=== PATIENT | male | born 1935 | race Caucasian/White ===

== ENCOUNTER 2021-07-15 16:02 | Emergency (ER) | payer MEDICARE, SELFPAY ==
[2021-07-15] VITALS (7 sets, daily range): BP systolic 135–141; BP diastolic 51–71; PULSE 71–88; RESP 17–20; TEMP 36.3–36.8; O2SAT 97–100
--- NOTE | ~2021-07-15 | XR_ITS ---
EXAMINATION: XR chest 1V portable 07/15/2021 16:55 INDICATION: Weakness. Dyspnea. PROCEDURE: AP portable chest COMPARISON: No prior studies for comparison. FINDINGS: The lungs are clear. The cardiomediastinal silhouette is within normal limits. There are no pleural effusions. There is no pneumothorax suspected. Status post median sternotomy for CABG. IMPRESSION: 1: NO ACUTE CARDIOPULMONARY DISEASE. Reviewed, dictated and finalized at location A.
--- NOTE | 2021-07-15 17:01 | PC.NURSE ---
Patient's son in room. He tells me that patient's current mental status is his baseline but that over the last 3-4 days he has been having periods of increased confusion. Patient states he has not been able to tell where he was, sometimes saying he was in [place], another time stating he was in his garage, etc...
[2021-07-15 17:16] LABS: Basophils Percent Auto 0.3 % (0.2-1.2); Eosinophils Absolute Auto 0.2 K/mm3 (0-0.3); Eosinophils Percent Auto 3.1 % (0-4.4); Hematocrit 32.9 % (42.0-52.0); Hemoglobin 10.4 g/dL (14.0-18.0); Immature Granulocyte Absolute 0.01 K/mm3 (0.00-0.031); Immature Granulocyte Percent A 0.2 % (0-0.5); Lymphocytes Absolute Auto 0.97 K/mm3 (0.9-3.2); Lymphocytes Percent Auto 16.6 % (18.3-44.2); Mean Corpuscular HGB Conc 31.6 g/dl (32-36); Mean Corpuscular Hemoglobin 32.1 pg (26-34); Mean Corpuscular Volume 101.5 fl (80-100); Mean Platelet Volume 12.4 fl (7.4-10.4); Monocytes Absolute Auto 0.7 K/mm3 (0.1-0.6); Monocytes Percent Auto 11.5 % (2.6-8.5); Neutrophils Percent Auto 68.3 % (45.5-73.1); Platelet Count Result 102 k/mm3 (150-375); Red Blood Count 3.24 M/mm3 (4.6-6.20); Red Cell Distribution Width 12.5 % (11.5-14.5); White Blood Count 5.8 K/mm3 (4.5-10.0)
[2021-07-15] MEDS: LACTATED RINGERS 1,000 ML 999 ML IV CONT (17:20)
[2021-07-15 17:28] LABS: Alanine Aminotransferase 13 U/L (4-50); Albumin Level 3.8 g/dL (3.5-5.1); Alkaline Phosphatase 90 U/L (38-126); Anion Gap 8 mmol/L (8-16); Aspartate Amino Transferase 18 U/L (17-59); Bilirubin,Total 0.5 mg/dL (0.2-1.3); Blood Urea Nitrogen 29 mg/dL (9-20); Calcium 8.8 mg/dL (8.4-10.2); Carbon Dioxide 25 mmol/L (22-30); Chloride 107 mmol/L (98-107); Estimated CRCL calculation 39 ml/min; Estimated Glomerular Filt Rate 44; Glucose 113 mg/dL (65-110); Potassium 4.3 mmol/L (3.4-5.0); Sodium 140 mmol/L (137-145)
--- NOTE | 2021-07-15 17:42 | PC.NURSE ---
urine to lab at this time. EDP notified of amount of urine from catheterization.
[2021-07-15 17:50] LABS: Add Urine Microscopic? NO; Appearance Urine Clear (Clear); Bilirubin Urine Negative (Negative); Blood Urine Negative (Negative); Color Urine Straw (Yellow); Glucose Urine UA Negative (Negative); Ketones Urine Negative (Negative); Leukocyte Esterase Ur Negative LEU/UL (Negative); Nitrate Urine Negative (Negative); Protein Urine Negative (Negative); Specific Grav Ur 1.005 (1.001-1.035); Urobilinogen Urine Negative mg/dL (<2.0)
--- NOTE | 2021-07-15 19:43 | PC.NURSE ---
EDP ordered murillo placement due to excessive urine noted with straight catheterization.
--- NOTE | 2021-07-15 20:11 | ED.GENADULT ---
HPI - General Adult General Chief complaint: Unspecified Stated complaint: Constipation Time Seen by Provider: 07/15/21 16:06 Source: patient and family Mode of arrival: ambulatory Limitations: altered mental status History of Present Illness HPI narrative: 85-year-old man Brought in from nursing facility for constipation and confusion Patient had apparently been constipated for several days but shortly before departing for the ED this problem was reported to resolve itself at the nursing facility and is no longer bothersome His son, who brought him in, is concerned that his mental status has been fluctuating and worsening Patient is described as less active than usual more confused than usual thinking he was in [facility] at some point for instance He has had similar issues with UTIs in the past and does say that he has been voiding often Patient otherwise contributes hardly anything to his history but does not appear to be in any distress Related Data Home Medications Medication Instructions Recorded Confirmed aspirin 81 mg tablet,delayed 81 mg PO DAILY 06/29/21 release brimonidine 0.2 % eye drops 1 drp EACH EYE Q8H 06/29/21 carvedilol 3.125 mg tablet 3.125 mg PO Q12H 06/29/21 desvenlafaxine 100 mg 100 mg PO DAILY 06/29/21 tablet,extended release 24 hr dorzolamide 22.3 mg-timolol 6.8 1 drp EACH EYE BID 06/29/21 mg/mL eye drops finasteride 5 mg tablet 5 mg PO DAILY 06/29/21 fluticasone propionate 50 1 spray INTRANASAL DAILY 06/29/21 mcg/actuation nasal spray,suspension folic acid 1 mg tablet 1 mg PO DAILY 06/29/21 furosemide 20 mg tablet 20 mg PO QAM 06/29/21 lisinopril 5 mg tablet 5 mg PO DAILY 06/29/21 simvastatin 40 mg tablet 40 mg PO DAILY 06/29/21 tamsulosin 0.4 mg capsule 0.4 mg PO DAILY 06/29/21 Allergies Allergy/AdvReac Type Severity Reaction Status Date / Time watermelon Allergy Severe SOB Verified 07/15/21 16:56 Review of Systems Review of Systems: ROS unobtainable: Yes unobtainable due to mental status PMFSH Social History Social History (Updated 06/29/21 @ 14:31 by Lena Medrano) Social History: Smoking status: Former smoker Tobacco type: cigarettes Second hand tobacco smoke exposure: Yes Alcohol intake: never Substance use: never Substance use type: does not use Gender identity (if verbalized by the patient): Male Sexual Orientation (if Verbalized by the Patient): Straight or Heterosexual Exam Const: General: no acute distress and well developed Orientation/consciousness: oriented to person Other: Frail, elderly, oriented x1-2 HENMT: Head: normal to inspection, normocephalic and atraumatic Ears: external ears normal General nose exam: no epistaxis Eyes: Conjunctivae: conjunctivae normal EOM: EOMs intact bilaterally Neck: Neck: normal visual inspection, supple and no JVD Chest: Chest palpation & inspection: normal inspection of the chest Resp: Effort & Inspection: normal respiratory effort and not labored Auscultation: clear to auscultation bilaterally, no rales, no rhonchi, no wheezes and other (BS =) Cardio: Rate: regular rate Rhythm: regular rhythm and other (Occasional extrasystole) Heart sounds: no murmurs GI: GI Palp: Yes Soft to palpation, No Tenderness to palpation present (GI) and No Guarding due to palpation present (GI) Urinary Catheter: Urinary Catheter: other (Gomez was placed with 1300 cc out) Skin: General skin exam: normal color and no rashes or lesions noted Neuro: General: moves all extremities Extrem: General: other (Trace edema) Course Course Emergency Course: Discussed with son, unremarkable work-up, Gomez will need to stay in for it at least 2 or 3 days and may be a week or longer, will need to be followed up by urology as well as by primary care Vital Signs Vital signs: Vital Signs Temperature 36.4 C 07/15/21 16:02 Pulse Rate 71 07/15/21 16:02 Respiratory Rate 18 07/05
== END 2021-07-15 21:35 ==
PROVIDERS: Emergency Provider Emergency Medicine; PCP Family Medicine
DX: R41.82 Altered mental status, unspecified (principal); R33.9 Retention of urine, unspecified; Z79.82 Long term (current) use of aspirin; Z87.891 Personal history of nicotine dependence
CPT/HCPCS: 36415; 51701; 51702; 71045; 80053; 81003; 84443; 85025; 96360; 99284; J7120

== ENCOUNTER 2021-07-29 19:48 | Inpatient (IN) | payer MEDICARE, SELFPAY ==
--- NOTE | ~2021-07-29 | CT_ITS ---
EXAMINATION: CT brain wo con DATE: 07/29/2021 20:52 INDICATION: Confusion TECHNIQUE: Computed tomography (CT) of the head was performed without intravenous contrast. Sagittal and coronal reconstructions were performed. The mA was adjusted according to patient size. Iterative reconstruction technique was employed. The dose-length product was 681.00 mGy-cm. COMPARISON: None FINDINGS: No acute intracranial hemorrhage, acute infarction or abnormal extra axial fluid collection. There is mild to moderate scattered white matter hypoattenuation consistent with chronic small vessel ischemi c disease. Symmetric prominence of the sulci and ventricles consistent with moderate age-appropriate diffuse cerebral volume loss. No mass/mass effect. Changes of bilateral intraocular lens replacement . The orbits, paranasal sinuses and mastoid air cells are normal. Intracranial calcified cerebral ath erosclerosis is noted. IMPRESSION: 1. No acute intracranial process. 2. Age-related changes including moderate diffuse volume loss and moderate scattered white matter hyp oattenuation consistent with chronic small vessel ischemic disease. Reviewed, dictated and finalized at location A. IMPRESSION: 1. No acute intracranial process. 2. Age-related changes including moderate diffuse volume loss and moderate scat tered white matter hypoattenuation consistent with chronic small vessel ischemi c disease.
--- NOTE | ~2021-07-29 | CT_ITS ---
EXAMINATION: CT abdomen pelvis wo con EXAM DATE: 07/29/2021 22:42 INDICATION: Hematuria. TECHNIQUE: Spiral CT of the abdomen and pelvis was performed without contrast. Axial, coronal and sag ittal images were reviewed. The dose-length product (DLP) for this examination was 1447.87 mGy-cm. The exposure was tailored according to patient size (auto mA exposure control), and iterative reconst ruction (ASIR) was used as additional dose reduction technique. There is no prior study for comparis on. FINDINGS: There is no nephrolithiasis or hydronephrosis. There is mild bilateral renal atrophy. The p rostate is unremarkable. Small left inguinal fat-containing hernia. The bladder is distended with a few foci of gas likely introduced by Gomez. There is Gomez catheter with balloon anchor inflated in t he membranous portion of the urethra, should be deflated and catheter advanced or reinserted. The liver, spleen, adrenal glands and pancreas are unremarkable. There is punctate calcified gallsto ne. There is no retroperitoneal or pelvic lymphadenopathy. There is moderate scattered arterioscle rotic disease. Mildly dilated mid abdominal aorta to 3.1 cm. The appendix is normal. The stomach and small bowel are unremarkable. There is expected amount of c olonic stool. No free intraperitoneal gas. The heart is normal in size. The interventricular sept um is perceptible, suggesting patient is anemic. There are no pericardial or pleural effusions. Th e lung bases are unremarkable. There are no osteoblastic or osteolytic lesions identified. Moderate -sized thoracolumbar endplate osteophytes and overall moderate spondylosis. IMPRESSION: 1. Distended bladder. Gomez catheter balloon inflated in the membranous portion of the urethra. 2. Small left inguinal fat-containing hernia. 3. Punctate cholelithiasis. I discussed Gomez catheter position with hospitalist Ezra at 07/30/2021 08:17 CDT. Reviewed, dictated and finalized at location A. IMPRESSION: 1. Distended bladder. Gomez catheter balloon inflated in the membranous portio n of the urethra. 2. Small left inguinal fat-containing hernia. 3. Punctate cholelithiasis. I discussed Gomez catheter position with hospitalist Ezra at 07/30/2021 08:17 CDT .
--- NOTE | ~2021-07-29 | XR_ITS ---
EXAMINATION: XR chest 1V portable EXAM DATE: 07/30/2021 00:10 INDICATION: Cough. TECHNIQUE: Portable AP frontal chest x-ray was obtained. Comparison is made to prior examination from 07/15/2021. FINDINGS: Sternotomy wires are present without findings to suggest sternal dehiscence. Mild cardiomeg rudy and pulmonary vascular congestion. Left basilar linear opacity most consistent with subsegmental atelectasis. The lungs are otherwise clear. There are bony degenerative changes. IMPRESSION: 1. Mild cardiomegaly, pulmonary vascular congestion. 2. Left basilar linear atelectasis. Reviewed, dictated and finalized at location A.
[2021-07-29 20:00] VITALS: BP 124/54; PULSE 102; RESP 32; TEMP 37.5; O2SAT 96
--- NOTE | 2021-07-29 20:14 | ECG_ITS ---
Measurements Intervals [place] Rate: 96 P: -16 [place]: 92 QRS: 49 QRSD: 97 T: 70 QT: 336 QTc: 425 Interpretive Statements SINUS OR ECTOPIC ATRIAL RHYTHM WITH SHORT [place] INTERVAL BASELINE ARTIFACT- I, III, AVL BORDERLINE ECG Electronically Signed On 07-30-2021 7:57:05 CDT by Aníbal Floyd D.O.
--- NOTE | 2021-07-29 20:26 | ED.AMS ---
HPI - Altered Mental Status General Chief Complaint: Altered Mental Status Stated Complaint: AMS Time Seen by Provider: 07/29/21 20:02 Source: patient Mode of arrival: ambulatory Limitations: no limitations History of Present Illness HPI narrative: Patient is an 85-year-old male brought in by EMS from assisted living facility due to confusion and generalized weakness started today. According to daughter when she visited him, he was confused, he did not know where he was and when I tried to stand him up he was too weak usually patient is alert and oriented x4, and walks with a walker. Denies any focal weakness. Patient has a Gomez cath due to urinary retention that was placed 1 month ago by his urologist. Related Data Home Medications Medication Instructions Recorded Confirmed aspirin 81 mg tablet,delayed 81 mg PO DAILY 06/29/21 release brimonidine 0.2 % eye drops 1 drp EACH EYE Q8H 06/29/21 carvedilol 3.125 mg tablet 3.125 mg PO Q12H 06/29/21 desvenlafaxine 100 mg 100 mg PO DAILY 06/29/21 tablet,extended release 24 hr dorzolamide 22.3 mg-timolol 6.8 1 drp EACH EYE BID 06/29/21 mg/mL eye drops finasteride 5 mg tablet 5 mg PO DAILY 06/29/21 fluticasone propionate 50 1 spray INTRANASAL DAILY 06/29/21 mcg/actuation nasal spray,suspension folic acid 1 mg tablet 1 mg PO DAILY 06/29/21 furosemide 20 mg tablet 20 mg PO QAM 06/29/21 lisinopril 5 mg tablet 5 mg PO DAILY 06/29/21 simvastatin 40 mg tablet 40 mg PO DAILY 06/29/21 tamsulosin 0.4 mg capsule 0.4 mg PO DAILY 06/29/21 Allergies Allergy/AdvReac Type Severity Reaction Status Date / Time watermelon Allergy Severe SOB Verified 07/15/21 16:56 Review of Systems Review of Systems: All systems reviewed & are unremarkable except as noted in HPI and below Eyes: Eyes: Denies blurry vision, Denies change in vision and Denies loss of vision ENT: Denies dizziness, Denies ear discharge, Denies headache(s), Denies lip swelling, Denies epistaxis, Denies nasal congestion, Denies neck pain, Denies throat swelling and Denies tongue swelling Cardiovascular: Cardiovascular: Denies chest pain, Denies chest pain at rest, Denies chest pain with activity, Denies diaphoresis, Denies rapid heart rate, Denies edema, Denies irregular heart rhythm, Denies lightheadedness, Denies palpitations, Denies dyspnea and Denies dyspnea on exertion Respiratory: Respiratory: Denies chest congestion, Denies cough, Denies hemoptysis, Denies dyspnea and Denies dyspnea on exertion Gastrointestinal: Gastrointestinal: Denies abdominal pain, Denies melena, Denies hematochezia, Denies diarrhea, Denies nausea, Denies vomiting and Denies hematemesis Musculoskeletal: Musculoskeletal: Denies abnormal gait, Denies deformity, Denies joint swelling, Denies limited range of motion, Denies neck pain and Denies numbness Neurologic: Denies Abnormal speech present, Denies confusion, Denies dizziness, Denies headache(s), Denies focal weakness, Denies loss of vision, Denies numbness, Denies Other visual disturbances and Denies Sensory deficit (Neuro) Psychiatric: Psychiatric: Denies confusion, Denies depression, Denies auditory hallucinations, Denies homicidal ideation and Denies suicidal ideation Endocrine: Endocrine: Denies cold intolerance, Denies excessive sweating, Denies fatigue, Denies heat intolerance and Denies palpitations Hematologic/Lymphatic: Hematologic/Lymphatic: Denies easy bleeding and Denies easy bruising Allergic/Immunologic: Allergic/Immunologic: Denies lip swelling, Denies throat swelling and Denies tongue swelling PMFSH Social History Social History Social History: Smoking status: Former smoker Tobacco type: cigarettes Second hand tobacco smoke exposure: Yes Alcohol intake: never Substance use: never Substance use type: does not use Gender identity (if verbalized by the patient): Male Sexual Orientation (if
[2021-07-29 21:00] LABS: Hematocrit 28.8 % (42.0-52.0); Hemoglobin 9.3 g/dL (14.0-18.0); Immature Platelet Fraction Pct 6.8 % (0.9-11.2); Mean Corpuscular HGB Conc 32.3 g/dl (32-36); Mean Corpuscular Hemoglobin 33.3 pg (26-34); Mean Corpuscular Volume 103.2 fl (80-100); Mean Platelet Volume 11.9 fl (7.4-10.4); Platelet Count Result 133 k/mm3 (150-375); Red Blood Count 2.79 M/mm3 (4.6-6.20); Red Cell Distribution Width 12.5 % (11.5-14.5); White Blood Count 9.4 K/mm3 (4.5-10.0)
[2021-07-29 21:07] LABS: Lactic Acid Reflex 1.9 mmol/L (0.7-2.1); Prothrombin Time 13.4 Seconds (11.1-14.7)
[2021-07-29 21:08] VITALS: BP 106/58; PULSE 94; RESP 26; O2SAT 99
[2021-07-29 21:08] LABS: Add Urine Microscopic? YES; Appearance Urine Cloudy (Clear); Bacteria Urine Trace /hpf; Bilirubin Urine Negative (Negative); Blood Urine 3+ (Negative); Color Urine Red (Yellow); Glucose Urine UA Negative (Negative); Ketones Urine Negative (Negative); Leukocyte Esterase Ur Negative LEU/UL (Negative); Mucus Urine Rare /lpf; Nitrate Urine Negative (Negative); Partial Thromboplastin Time 24.6 SECONDS (22.3-36.8); Protein Urine 2+ mg/dL (Negative); RBC Urine >75 /hpf (0-2); Specific Grav Ur 1.015 (1.001-1.035); Squamous Epithelial Cell Urine Occasional /hpf (Few); Urobilinogen Urine Negative mg/dL (<2.0)
[2021-07-29] MEDS: LACTATED RINGERS 1,000 ML 999 ML IV CONT (21:08)
[2021-07-29 21:11] LABS: Alanine Aminotransferase 35 U/L (4-50); Albumin Level 3.5 g/dL (3.5-5.1); Alkaline Phosphatase 77 U/L (38-126); Anion Gap 7 mmol/L (8-16); Aspartate Amino Transferase 36 U/L (17-59); Bilirubin,Total 0.5 mg/dL (0.2-1.3); Blood Urea Nitrogen 35 mg/dL (9-20); CRP 2.8 mg/dL (<1.0); Calcium 8.5 mg/dL (8.4-10.2); Carbon Dioxide 23 mmol/L (22-30); Chloride 109 mmol/L (98-107); Estimated CRCL calculation 42 ml/min; Estimated Glomerular Filt Rate 48; Glucose 156 mg/dL (65-110); Potassium 4.3 mmol/L (3.4-5.0); Sodium 139 mmol/L (137-145)
[2021-07-29 21:24] LABS: Anisocytosis 1+ (NORMAL); Band Neutrophils Percent 9 % (0-6); Monocytes Absolute Manual 0.09 K/mm3 (0.1-0.90); Monocytes Percent Manual 1 % (3-9); Neutrophils Percent Manual 90 % (46-73); Total Cells Counted 100
[2021-07-29 22:08] VITALS: BP 104/73; PULSE 96; RESP 28; O2SAT 98
[2021-07-29 23:24] VITALS: BP 94/40; PULSE 93; RESP 24; O2SAT 96
[2021-07-30] VITALS (8 sets, daily range): BP systolic 105–123; BP diastolic 50–65; PULSE 75–93; RESP 16–22; TEMP 36.4–37; O2SAT 100; BMI 32.8; BMI 10.0
[2021-07-30] MEDS: LIDOCAINE HCL 2% GEL UROJET 10 ML PKG (00:45)
--- NOTE | 2021-07-30 00:48 | PM.IMHP ---
H&P: HPI History of Present Illness Date/Time: 07/29/21 11:30 Patient seen and examined on 07/29/2021 at 11:38 p.m. later documentation Chief Complaint: Confusion Narrative: Patient is an 85-year-old male brought in by EMS from assisted living facility due to confusion and generalized weakness that started today. [id number] at bedside from was the history was taken. Patient himself open his eyes on verbal commands and answers few questions but not able to provide me with any history per se. The [id number] states that the patient was independently living back and [place] and recently moved to [facility] few months ago. He was stabbed list with the primary care doctor here and had seen her last month. He has been having urinary dribbling and frequency for quite some time and presented to the ER on 07/15/2021 with acute urinary retention for which are urinary catheter was placed in the ER and was sent home. He apparently has been bleeding in his urine catheter since then and have been progressively getting is confused on and off. He is brought in again today by his [id number] when he was noted to be weak and more confused while she visited him. He has not been eating and drinking well as well. Denies any fever or chills. He does have a hacking cough which she reports he always had that. He is COVID vaccinated. He is normally alert and oriented x4 and walks with a walker. He has no focal weakness noted in our evaluation today. CT head was negative done in the ER. He had normal WBC count renal function was stable he does have chronic kidney disease stage 3 urinalysis was positive for greater than 35 rbc's 7-9 WBC. It was checked it that he had altered mental status due to urinary tract infection and is getting admitted for further evaluation and management. He is do not resuscitate Review of Systems Review of Systems: ROS unobtainable: Yes unobtainable due to medical condition and unobtainable due to mental status [facility] Social History Social History Social History: Smoking status: Former smoker Tobacco type: cigarettes Second hand tobacco smoke exposure: Yes Alcohol intake: never Substance use: never Substance use type: does not use Gender identity (if verbalized by the patient): Male Sexual Orientation (if Verbalized by the Patient): Straight or Heterosexual Meds Home Medications and Allergies Home Medications Medication Instructions Recorded Confirmed Type aripiprazole 5 mg tablet 2.5 mg PO DAILY #90 tablet 06/29/21 06/29/21 Rx aspirin 81 mg tablet,delayed 81 mg PO DAILY 06/29/21 History release brimonidine 0.2 % eye drops 1 drp EACH EYE Q8H 06/29/21 History carvedilol 3.125 mg tablet 3.125 mg PO Q12H 06/29/21 History desvenlafaxine 100 mg 100 mg PO DAILY 06/29/21 History tablet,extended release 24 hr dorzolamide 22.3 mg-timolol 6.8 1 drp EACH EYE BID 06/29/21 History mg/mL eye drops finasteride 5 mg tablet 5 mg PO DAILY 06/29/21 History fluticasone propionate 50 1 spray INTRANASAL DAILY 06/29/21 History mcg/actuation nasal spray,suspension folic acid 1 mg tablet 1 mg PO DAILY 06/29/21 History furosemide 20 mg tablet 20 mg PO QAM 06/29/21 History lisinopril 5 mg tablet 5 mg PO DAILY 06/29/21 History mirtazapine 15 mg tablet 15 mg PO QHS #90 tablet 06/29/21 06/29/21 Rx simvastatin 40 mg tablet 40 mg PO DAILY 06/29/21 History tamsulosin 0.4 mg capsule 0.4 mg PO DAILY 06/29/21 History nitrofurantoin monohyd/m-cryst 100 mg PO Q12H 7 Days #14 cap 07/15/21 Rx [Macrobid] Allergies Allergy/AdvReac Type Severity Reaction Status Date / Time watermelon Allergy Severe SOB Verified 07/15/21 16:56 Vital Signs Vital Signs - 24 hr 07/29/21 20:00 07/29/21 21:08 07/29/21 22:08 Temperature 99.5 F Pulse Rate 102 H 94 96 Respiratory Rate 32 H 26 H 28 H Bloo
[2021-07-30 02:09] LABS: NT Pro B Type Natriuretic Pept 4130 pg/mL (5-100)
[2021-07-30] MEDS: LACTATED RINGERS 1,000 ML 50 ML IV CONT (02:30)
--- NOTE | 2021-07-30 06:13 | PC.NURSE ---
This patient, Ealdio Bello, was admitted to 3 [facility] Surg Room 317-01. Patient/family oriented to hospital policies and general routines including ID bracelet, bed and alarms, visiting hours, pain management, procedures, bathroom and other care routines, personal items, smoking policy, room service/diet, and visiting hours. Information on how to activate the Rapid Response Team has been discussed. Patient/Family are encouraged to report perceived risks to care and to ask questions if they do not understand what they are told or what they should do.
[2021-07-30] MEDS: guaiFENesin 12 HR 600 MG TABCR PO ×2 (10:00→21:56)
[2021-07-30] MEDS: LIDOCAINE HCL 2% GEL UROJET 10 ML PKG MUCOUS MEM (10:33)
--- NOTE | 2021-07-30 10:33 | WPDURCON ---
Assessment and Plan Assessment and plan (1) Urinary retention: Code(s): R33.9 - Retention of urine, unspecified Status: Acute Assessment and Plan: I removed the 3-way catheter and placed an 18 [place] catheter. This placed easily and flushed well. It is in correct position. (2) Chronic indwelling Gomez catheter: Code(s): Z97.8 - Presence of other specified devices Status: Acute Assessment and Plan: He will need to continue with the catheter. He should have follow up with his regular urologist for management. If he does not have a regular urologist, his facility should make him a follow up visit with [facility]. (3) Hematuria: Code(s): R31.9 - Hematuria, unspecified Status: Acute Assessment and Plan: The sequence of events appears to be that he presented with the catheter malpositioned from his facility. With replacement of the catheter initially in the ER, the hematuria has cleared. He does not need additional work up as the cause of the hematuria appears to be catheter trauma. Urology Consult Note HPI Date Seen: 07/30/21 Requesting Physician: Brent Armando MD Primary Care Provider: Barbara Batista MD Consult Narrative Narrative: Eladio Bello is a 85 year old male who was admitted for altered mental status and possible UTI. He has a chronic Gomez catheter for management of urinary retention. On CT scan from 07/29/21 at 22:24, the catheter was in the membranous urethra. On examination today, there is a 3-way Gomez catheter in place draining clear yellow urine with CBI off. In consultation with the nursing staff, the Gomez has been draining well and they were instructed to reposition the Gomez based on the CT scan findings. The Gomez drained well before and after the repositioning. Review of Systems Review of Systems: All systems reviewed & are unremarkable except as noted in HPI and below PMFSH Social History Social History Social History: Smoking status: Former smoker Second hand tobacco smoke exposure: Yes Alcohol intake: never Substance use: never Substance use type: does not use Gender identity (if verbalized by the patient): Male Sexual Orientation (if Verbalized by the Patient): Straight or Heterosexual Spiritual care concerns: No Meds Home Medications and Allergies Home Medications Medication Instructions Recorded Confirmed Type aripiprazole 5 mg tablet 2.5 mg PO DAILY #90 tablet 06/29/21 06/29/21 Rx aspirin 81 mg tablet,delayed 81 mg PO DAILY 06/29/21 History release brimonidine 0.2 % eye drops 1 drp EACH EYE Q8H 06/29/21 History carvedilol 3.125 mg tablet 3.125 mg PO Q12H 06/29/21 History desvenlafaxine 100 mg 100 mg PO DAILY 06/29/21 History tablet,extended release 24 hr dorzolamide 22.3 mg-timolol 6.8 1 drp EACH EYE BID 06/29/21 History mg/mL eye drops finasteride 5 mg tablet 5 mg PO DAILY 06/29/21 History fluticasone propionate 50 1 spray INTRANASAL DAILY 06/29/21 History mcg/actuation nasal spray,suspension folic acid 1 mg tablet 1 mg PO DAILY 06/29/21 History furosemide 20 mg tablet 20 mg PO QAM 06/29/21 History lisinopril 5 mg tablet 5 mg PO DAILY 06/29/21 History mirtazapine 15 mg tablet 15 mg PO QHS #90 tablet 06/29/21 06/29/21 Rx simvastatin 40 mg tablet 40 mg PO DAILY 06/29/21 History tamsulosin 0.4 mg capsule 0.4 mg PO DAILY 06/29/21 History nitrofurantoin monohyd/m-cryst 100 mg PO Q12H 7 Days #14 cap 07/15/21 Rx [Macrobid] Allergies Allergy/AdvReac Type Severity Reaction Status Date / Time watermelon Allergy Severe SOB Verified 07/30/21 01:50 Vital Signs Vital Signs - 24 hr 07/29/21 20:00 07/29/21 21:08 07/29/21 22:08 Temperature 37.5 C Pulse Rate 102 H 94 96 Respiratory Rate 32 H 26 H 28 H Blood Pressure 124/54 L 106/58 L 104/73 Pulse Oximetry 96 99 98 07/29/21 23:24 092
--- NOTE | 2021-07-30 10:48 | PCPTNOTE ---
attempted PT evaluation, pt refused, stated he was tired and neck hurt; unable to convince him, will attempt later.
--- NOTE | 2021-07-30 12:12 | P.PNIM_ITS ---
Progress Note: A&P Assessment and Plan (1) Acute metabolic encephalopathy: Code(s): G93.41 - Metabolic encephalopathy Status: Acute Assessment and Plan: * Multifactorial. Could be from infection or probable cause more from urinary retention and bladder distention along with severe constipation * Ongoing hematuria since Gomez catheter placement * Questionable UTI * ongoing cough, chest x-ray from last week was normal. * CT abdomen and pelvis ordered to further evaluate his hematuria and formal read is pending * ongoing urinary retention. Gomez catheter changed * Coude catheter inserted with ease * consult Urology, thinks is probably Gomez catheter trauma * empirically place on ceftriaxone for his urinary tract infection. * COVID vaccinated. * CT head is negative for any acute intracranial abnormality. * Consider MRI is does not improve. * pancultured follow culture (2) Urinary tract infection: Qualifiers: Hematuria presence: with hematuria Urinary tract infection type: acute cystitis Qualified Code(s): N30.01 - Acute cystitis with hematuria Code(s): N39.0 - Urinary tract infection, site not specified Status: Acute Assessment and Plan: * Could be from chronic Gomez catheter * White blood cell count 9.4 * Ceftriaxone 1 g q.day * Gomez catheter changed to a Coude * Trend labs * Trend urine output (3) Alzheimer's dementia with behavioral disturbance: Code(s): G30.9 - Alzheimer's disease, unspecified; F02.81 - Dementia in other diseases classified elsewhere with behavioral disturbance Status: Acute Assessment and Plan: * History of Alzheimer's * Continue home medications (4) BPH (benign prostatic hyperplasia): Code(s): N40.0 - Benign prostatic hyperplasia without lower urinary tract symptoms Status: Acute Assessment and Plan: * Continue home medications * Coude catheter to be left in * Chronic catheter (5) Hematuria: Code(s): R31.9 - Hematuria, unspecified Status: Acute Assessment and Plan: * UA showed red and cloudy urine with 3+ blood, rbc's greater than 75 * CBI draining red urine * Probably from Gomez catheter trauma * Patient did pull on his Gomez catheter (6) Chronic indwelling Gomez catheter: Code(s): Z97.8 - Presence of other specified devices Status: Acute Assessment and Plan: * New coude catheter * Patient has had a chronic Gomez for 2 weeks (7) Urinary retention: Code(s): R33.9 - Retention of urine, unspecified Status: Acute Assessment and Plan: * Seen in the CT * Probably from catheter being pulled on * Catheter balloon lodged in the urethra * Finasteride and tamsulosin ordered (8) Diabetes mellitus type 2, controlled: Code(s): E11.9 - Type 2 diabetes mellitus without complications Status: Acute Assessment and Plan: * Glucose 156 * Accu-Cheks a.c. HS * Continue home meds * Trend labs * Hypoglycemia protocol * Sliding scale insulin (9) Hypertension: Code(s): I10 - Essential (primary) hypertension Status: Acute Assessment and Plan: * Blood pressure 122/57 * Continue home meds * Trend blood pressure * Adjust medications as needed (10) Hyperlipidemia: Code(s): E78.5 - Hyperli
--- NOTE | 2021-07-30 12:12 | PM.IMPN ---
Progress Note: A&P Assessment and Plan (1) Acute metabolic encephalopathy: Code(s): G93.41 - Metabolic encephalopathy Status: Acute Assessment and Plan: Multifactorial. Could be from infection or probable cause more from urinary retention and bladder distention along with severe constipation Ongoing hematuria since Gomez catheter placement Questionable UTI ongoing cough, chest x-ray from last week was normal. CT abdomen and pelvis ordered to further evaluate his hematuria and formal read is pending ongoing urinary retention. Gomez catheter changed Coude catheter inserted with ease consult Urology, thinks is probably Gomez catheter trauma empirically place on ceftriaxone for his urinary tract infection. COVID vaccinated. CT head is negative for any acute intracranial abnormality. Consider MRI is does not improve. pancultured follow culture (2) Urinary tract infection: Qualifiers: Hematuria presence: with hematuria Urinary tract infection type: acute cystitis Qualified Code(s): N30.01 - Acute cystitis with hematuria Code(s): N39.0 - Urinary tract infection, site not specified Status: Acute Assessment and Plan: Could be from chronic Gomez catheter White blood cell count 9.4 Ceftriaxone 1 g q.day Gomez catheter changed to a Coude Trend labs Trend urine output (3) Alzheimer's dementia with behavioral disturbance: Code(s): G30.9 - Alzheimer's disease, unspecified; F02.81 - Dementia in other diseases classified elsewhere with behavioral disturbance Status: Acute Assessment and Plan: History of Alzheimer's Continue home medications (4) BPH (benign prostatic hyperplasia): Code(s): N40.0 - Benign prostatic hyperplasia without lower urinary tract symptoms Status: Acute Assessment and Plan: Continue home medications Coude catheter to be left in Chronic catheter (5) Hematuria: Code(s): R31.9 - Hematuria, unspecified Status: Acute Assessment and Plan: UA showed red and cloudy urine with 3+ blood, rbc's greater than 75 CBI draining red urine Probably from Gomez catheter trauma Patient did pull on his Gomez catheter (6) Chronic indwelling Gomez catheter: Code(s): Z97.8 - Presence of other specified devices Status: Acute Assessment and Plan: New coude catheter Patient has had a chronic Gomez for 2 weeks (7) Urinary retention: Code(s): R33.9 - Retention of urine, unspecified Status: Acute Assessment and Plan: Seen in the CT Probably from catheter being pulled on Catheter balloon lodged in the urethra Finasteride and tamsulosin ordered (8) Diabetes mellitus type 2, controlled: Code(s): E11.9 - Type 2 diabetes mellitus without complications Status: Acute Assessment and Plan: Glucose 156 Accu-Cheks a.c. 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
[2021-07-30] MEDS: BUMETANIDE INJ 1 MG/4 ML VIAL IV PUSH (13:52)
[2021-07-31 05:35] VITALS: BP 127/53; PULSE 77; RESP 20; TEMP 36.8; O2SAT 99
[2021-07-31 06:40] LABS: Basophils Percent Auto 0.2 % (0.2-1.2); Eosinophils Percent Auto 0.3 % (0-4.4); Hematocrit 29.3 % (42.0-52.0); Immature Granulocyte Absolute 0.02 K/mm3 (0.00-0.031); Immature Granulocyte Percent A 0.3 % (0-0.5); Immature Platelet Fraction Pct 7.4 % (0.9-11.2); Lymphocytes Percent Auto 3.1 % (18.3-44.2); Mean Corpuscular HGB Conc 30.7 g/dl (32-36); Mean Corpuscular Hemoglobin 32.4 pg (26-34); Mean Corpuscular Volume 105.4 fl (80-100); Mean Platelet Volume 11.8 fl (7.4-10.4); Monocytes Absolute Auto 0.5 K/mm3 (0.1-0.6); Monocytes Percent Auto 7.7 % (2.6-8.5); Neutrophils Absolute Auto 5.8 K/mm3 (1.3-6.7); Neutrophils Percent Auto 88.4 % (45.5-73.1); Platelet Count Result 101 k/mm3 (150-375); Red Blood Count 2.78 M/mm3 (4.6-6.20); Red Cell Distribution Width 12.3 % (11.5-14.5); White Blood Count 6.5 K/mm3 (4.5-10.0)
[2021-07-31 07:04] LABS: Alanine Aminotransferase 27 U/L (4-50); Albumin Level 3.2 g/dL (3.5-5.1); Alkaline Phosphatase 69 U/L (38-126); Anion Gap 8 mmol/L (8-16); Aspartate Amino Transferase 26 U/L (17-59); Bilirubin,Total 0.5 mg/dL (0.2-1.3); Blood Urea Nitrogen 32 mg/dL (9-20); Calcium 8.3 mg/dL (8.4-10.2); Carbon Dioxide 25 mmol/L (22-30); Chloride 106 mmol/L (98-107); Estimated CRCL calculation 49 ml/min; Estimated Glomerular Filt Rate 57; Glucose 104 mg/dL (65-110); Magnesium 1.9 mg/dL (1.6-2.3); Potassium 4.3 mmol/L (3.4-5.0); Sodium 139 mmol/L (137-145)
--- NOTE | 2021-07-31 07:51 | WPDUROPN2 ---
Progress Note: A&P Assessment and Plan (1) Hematuria: Qualifiers: Hematuria type: gross Qualified Code(s): R31.0 - Gross hematuria Code(s): R31.9 - Hematuria, unspecified Status: Resolved Assessment and Plan: Resolved (2) Chronic indwelling Gomez catheter: Code(s): Z97.8 - Presence of other specified devices Status: Acute Assessment and Plan: Continue Gomez. Outpatient urologic follow-up. Call with questions Subjective Subjective Date/Time Seen: 07/31/21 07:51 Urine clear. No complaints Review of Systems Review of Systems: All systems reviewed & are unremarkable except as noted in HPI and below Exam Const: General: cooperative HENMT: Head: normal to inspection Eyes: General: appearance normal, both eyes and all related structures Resp: Effort & Inspection: normal respiratory effort Urinary Catheter: Urinary Catheter: patent and draining and urine clear Objective Data Vital Signs Vital Signs: Vital Signs - 24 hr 07/30/21 08:00 07/30/21 14:00 07/30/21 20:00 Temperature 98.2 F Pulse Rate 76 75 Respiratory Rate 18 16 Blood Pressure 105/65 Pulse Oximetry 100 100 100 07/30/21 21:36 07/31/21 05:35 Temperature 97.6 F 98.3 F Pulse Rate 77 77 Respiratory Rate 20 20 Blood Pressure 123/50 L 127/53 L Pulse Oximetry 100 99 Intake/Output Intake/Output: Intake & Output 07/28/21 07/29/21 07/30/21 07/31/21 23:59 23:59 23:59 23:59 Intake Total 1050 970 240 Output Total 1000 450 Balance 1050 -30 -210 Meds/Results Medications: Active Medications Generic Name Dose Route Start Last Admin Trade Name Freq PRN Reason Stop Dose Admin Albuterol 2 puff 07/30/21 02:58 Albuterol Sulfate (*Sp) Aerosol 1 Puff INHALATION QIDRT PRN Congestion Guaifenesin 600 mg 07/30/21 09:00 07/30/21 21:56 Guaifenesin 12 Hr 600 Mg Tabcr PO 600 mg Q12HR RITA Administration Lactated Ringer's 1,000 mls @ 50 mls/hr 07/29/21 22:25 07/30/21 02:30 Lr - Lactated Ringers Iv IV CONT 50 mls/hr .Q20H RITA Administration Ceftriaxone Sodium/Dextrose 1 gm in 50 mls @ 100 mls/hr 07/30/21 21:00 07/30/21 22:26 Rocephin 1 Gm/D5w 50 Ml IVPB Infused Q24H RITA Infusion Radiology Results: ITS Impressions Head CT 07/29/21 21:16 IMPRESSION: 1. No acute intracranial process. 2. Age-related changes including moderate diffuse volume loss and moderate scattered white matter hypoattenuation consistent with chronic small vessel ischemic disease. Chest X-Ray 07/30/21 07:17 IMPRESSION: 1. Mild cardiomegaly, pulmonary vascular congestion. 2. Left basilar linear atelectasis. Abdomen/Pelvis CT 07/30/21 08:08 IMPRESSION: 1. Distended bladder. Gomez catheter balloon inflated in the membranous portion of the urethra. 2. Small left inguinal fat-containing hernia. 3. Punctate cholelithiasis. I discussed Gomez catheter position with hospitalist Ezra at 07/30/2021 08:17 CDT. Labs Labs: Laboratory Results - last 24 hr 07/31/21 07/31/21 06:04 06:04 WBC 6.5 RBC 2.78 L Hgb 9.0 L Hct 29.3 L MCV 105.4 H MCH 32.4 MCHC 30.7 L RDW 12.3 Plt Count 101 L MPV 11.8 H Immature Gran % (Auto) 0.3 Neut % (Auto) 88.4 H Lymph % (Auto) 3.1 L [place] % (Auto) 7.7 Eos % (Auto) 0.3 Baso % (Auto) 0.2 Lymph # (Auto) 0.20 L [place] # (Auto) 0.5 Eos # (Auto) 0.0 Baso # (Auto) 0.0 Abs Immat Gran (auto) 0.02 Absolute Neuts (auto) 5.8 Absolute Nucleated RBC 0.0 Nucleated RBC % 0.0 % Immature Plt Fraction 7.4 Sodium 139 Potassium 4.3 Chloride 106 Carbon Dioxide 25 Anion Gap 8 BUN 32 H Creatinine 1.20 Estim Creat Clear Calc 49 Estimated GFR 57 L Glucose 104 Calcium 8.3 L Magnesium 1.9 Total Bilirubin 0.5 AST 26 ALT 27 Alkaline Phosphatase 69 Total Protein 6.0 L Albumin 3.2 L
[2021-07-31] MEDS: guaiFENesin 12 HR 600 MG TABCR PO (08:24)
--- NOTE | 2021-07-31 11:39 | P.DS_ITS ---
DS: Admitting Diagnosis Discharge Date date of service 07/31/2021 at 11:00 a.m. Admitting Diagnosis urinary catheter trauma and UTI DS: Discharge Diagnosis Discharge Diagnosis (1) Acute metabolic encephalopathy: Code(s): G93.41 - Metabolic encephalopathy Status: Acute Assessment and Plan: * Multifactorial. Could be from infection or probable cause more from urinary retention and bladder distention along with severe constipation * Ongoing hematuria since Gomez catheter placement * Questionable UTI * ongoing cough, chest x-ray from last week was normal. * CT abdomen and pelvis ordered to further evaluate his hematuria and formal read is pending * ongoing urinary retention. Gomez catheter changed * Coude catheter inserted with ease * consult Urology, thinks is probably Gomez catheter trauma * empirically place on ceftriaxone for his urinary tract infection. * COVID vaccinated. * CT head is negative for any acute intracranial abnormality. * Consider MRI is does not improve. * pancultured follow culture (2) Urinary tract infection: Qualifiers: Hematuria presence: with hematuria Urinary tract infection type: acute cystitis Qualified Code(s): N30.01 - Acute cystitis with hematuria Code(s): N39.0 - Urinary tract infection, site not specified Status: Acute Assessment and Plan: * Could be from chronic Gomez catheter * White blood cell count 9.4 * cultures grew E coli * Ceftriaxone 1 g q.day * Gomez catheter changed to a Coude * Trend labs * Trend urine output (3) Alzheimer's dementia with behavioral disturbance: Code(s): G30.9 - Alzheimer's disease, unspecified; F02.81 - Dementia in other diseases classified elsewhere with behavioral disturbance Status: Acute Assessment and Plan: * History of Alzheimer's * Continue home medications (4) BPH (benign prostatic hyperplasia): Code(s): N40.0 - Benign prostatic hyperplasia without lower urinary tract symptoms Status: Acute Assessment and Plan: * Continue home medications * Coude catheter to be left in * Chronic catheter (5) Hematuria: Qualifiers: Hematuria type: gross Qualified Code(s): R31.0 - Gross hematuria Code(s): R31.9 - Hematuria, unspecified Status: Resolved Assessment and Plan: * UA showed red and cloudy urine with 3+ blood, rbc's greater than 75 * CBI draining red urine * Probably from Gomez catheter trauma * Patient did pull on his Gomez catheter (6) Chronic indwelling Gomez catheter: Code(s): Z97.8 - Presence of other specified devices Status: Acute Assessment and Plan: * New coude catheter * Patient has had a chronic Gomez for 2 weeks (7) Urinary retention: Code(s): R33.9 - Retention of urine, unspecified Status: Acute Assessment and Plan: * Seen in the CT * Probably from catheter being pulled on * Catheter balloon lodged in the urethra * Finasteride and tamsulosin ordered (8) Diabetes mellitus type 2, controlled: Code(s): E11.9 - Type 2 diabetes mellitus without complications Status: Acute Assessment and Plan: * Glucose 156 * Accu-Cheks a.c. HS * Continue home meds * Trend labs * Hypoglycemia protocol * Sliding scale insulin (9) Hypertension: Code(s): I10 - Ess
--- NOTE | 2021-07-31 11:39 | PM.DS ---
DS: Admitting Diagnosis Discharge Date date of service 07/31/2021 at 11:00 a.m. Admitting Diagnosis urinary catheter trauma and UTI DS: Discharge Diagnosis Discharge Diagnosis (1) Acute metabolic encephalopathy: Code(s): G93.41 - Metabolic encephalopathy Status: Acute Assessment and Plan: Multifactorial. Could be from infection or probable cause more from urinary retention and bladder distention along with severe constipation Ongoing hematuria since Gomez catheter placement Questionable UTI ongoing cough, chest x-ray from last week was normal. CT abdomen and pelvis ordered to further evaluate his hematuria and formal read is pending ongoing urinary retention. Gomez catheter changed Coude catheter inserted with ease consult Urology, thinks is probably Gomez catheter trauma empirically place on ceftriaxone for his urinary tract infection. COVID vaccinated. CT head is negative for any acute intracranial abnormality. Consider MRI is does not improve. pancultured follow culture (2) Urinary tract infection: Qualifiers: Hematuria presence: with hematuria Urinary tract infection type: acute cystitis Qualified Code(s): N30.01 - Acute cystitis with hematuria Code(s): N39.0 - Urinary tract infection, site not specified Status: Acute Assessment and Plan: Could be from chronic Gomez catheter White blood cell count 9.4 cultures grew E coli Ceftriaxone 1 g q.day Gomez catheter changed to a Coude Trend labs Trend urine output (3) Alzheimer's dementia with behavioral disturbance: Code(s): G30.9 - Alzheimer's disease, unspecified; F02.81 - Dementia in other diseases classified elsewhere with behavioral disturbance Status: Acute Assessment and Plan: History of Alzheimer's Continue home medications (4) BPH (benign prostatic hyperplasia): Code(s): N40.0 - Benign prostatic hyperplasia without lower urinary tract symptoms Status: Acute Assessment and Plan: Continue home medications Coude catheter to be left in Chronic catheter (5) Hematuria: Qualifiers: Hematuria type: gross Qualified Code(s): R31.0 - Gross hematuria Code(s): R31.9 - Hematuria, unspecified Status: Resolved Assessment and Plan: UA showed red and cloudy urine with 3+ blood, rbc's greater than 75 CBI draining red urine Probably from Gomez catheter trauma Patient did pull on his Gomez catheter (6) Chronic indwelling Gomez catheter: Code(s): Z97.8 - Presence of other specified devices Status: Acute Assessment and Plan: New coude catheter Patient has had a chronic Gomez for 2 weeks (7) Urinary retention: Code(s): R33.9 - Retention of urine, unspecified Status: Acute Assessment and Plan: Seen in the CT Probably from catheter being pulled on Catheter balloon lodged in the urethra Finasteride and tamsulosin ordered (8) Diabetes mellitus type 2, controlled: Code(s): E11.9 - Type 2 diabetes mellitus without complications Status: Acute Assessment and Plan: Glucose 156 Accu-Cheks a.c. 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
[2021-07-31 12:20] VITALS: O2SAT 95
[2021-07-31] MEDS: BUMETANIDE INJ 1 MG/4 ML VIAL IV PUSH (13:52)
[2021-07-31 14:00] VITALS: BP 152/60; PULSE 76; RESP 22; TEMP 36.5; O2SAT 96
[2021-07-31 15:07] LABS: EDCOVIDSCREEN Negative (Negative)
--- NOTE | 2021-08-02 07:02 | PC.NURSE ---
Urine cx is sensitive to Augmentin. Patient was sent home on this. Gualberto Del Valle NP aware.
== END 2021-07-31 16:45 | DRG 698 ==
LOC: ANHED 22:17 → ANH3MEDSUR 23:22
PROVIDERS: Admitting Provider Internal Medicine; Emergency Provider Emergency Medicine; PCP Family Medicine; Visit Provider Nurse Practitioner
DX: S37.39XA Other injury of urethra, initial encounter (principal); G93.41 Metabolic encephalopathy; F02.81 Dementia in other diseases classified elsewhere, unspecified severity, with behavioral disturbance; N30.01 Acute cystitis with hematuria; I13.0 Hypertensive heart and chronic kidney disease with heart failure and stage 1 through stage 4 chronic kidney disease, or unspecified chronic kidney disease; B96.20 Unspecified Escherichia coli [E. coli] as the cause of diseases classified elsewhere; X58.XXXA Exposure to other specified factors, initial encounter; Z20.822 Contact with and (suspected) exposure to COVID-19; I50.9 Heart failure, unspecified; E11.22 Type 2 diabetes mellitus with diabetic chronic kidney disease; N18.30 Chronic kidney disease, stage 3 unspecified; G30.9 Alzheimer's disease, unspecified; N40.1 Benign prostatic hyperplasia with lower urinary tract symptoms; R33.8 Other retention of urine; I25.10 Atherosclerotic heart disease of native coronary artery without angina pectoris; F41.1 Generalized anxiety disorder; D64.9 Anemia, unspecified; E78.5 Hyperlipidemia, unspecified; Z66 Do not resuscitate; Z86.73 Personal history of transient ischemic attack (TIA), and cerebral infarction without residual deficits; Z87.891 Personal history of nicotine dependence; Z95.1 Presence of aortocoronary bypass graft; Z97.8 Presence of other specified devices; Z79.82 Long term (current) use of aspirin; Z79.899 Other long term (current) drug therapy
CPT/HCPCS: 36415; 70450; 71045; 74176; 80053; 81001; 83605; 83735; 83880; 85025; 85055; 85610; 85730; 86140; 87040; 87077; 87086; 87088; 87186; 87426; 93005; 96361; 96365; 96366; 96367; 96375; 97110; 97161; 97165; 97530; 99285; A9270; C9803; G0378; J0456; J0696; J7120

== ENCOUNTER 2021-08-02 16:56 | Inpatient (IN) | payer MEDICARE, OTHER, SELFPAY ==
[2021-08-02] VITALS (24 sets, daily range): BP systolic 95–124; BP diastolic 51–99; PULSE 100–140; RESP 22–38; TEMP 36.4–36.6; O2SAT 96–100
--- NOTE | ~2021-08-02 | XR_ITS ---
XR abdomen NG/feed tube rechec INDICATION: Evaluate NG tube position. TECHNIQUE: Limited KUB perform for evaluating NG tube . COMPARISON: 08/05/2021 FINDINGS: NG tube tip at the gastroesophageal junction. Visualized bowel gas pattern is nonspecific. IMPRESSION: 1: NG tube tip at the gastroesophageal junction. Recommend advancement C5-6 centimeters. Reviewed, dictated and finalized at location A. IMPRESSION: 1: NG tube tip at the gastroesophageal junction. Recommend advancement C5-6 ce ntimeters.
--- NOTE | ~2021-08-02 | XR_ITS ---
EXAMINATION: XR abdomen NG/feed tube rechec INDICATION: Nasogastric tube placement TECHNIQUE: Portable AP KUB-NG at 1510 hours COMPARISON: 1348 hours FINDINGS: The nasogastric tube has been advanced. The tip of the nasogastric tube is in the stomach. The proximal side port is just below the gastroesophageal junction. The bowel gas pattern is nonspeci fic. IMPRESSION: 1. Tip of the nasogastric tube in the stomach with the proximal side port just below the gastroesopha geal junction. Consider advancing 2 to 3 cm. Reviewed, dictated and finalized at location A. IMPRESSION: 1. Tip of the nasogastric tube in the stomach with the proximal side port just below the gastroesophageal junction. Consider advancing 2 to 3 cm.
--- NOTE | ~2021-08-02 | XR_ITS ---
XR abdomen NG/feed tube insert INDICATION: Evaluate NG tube position. TECHNIQUE: Limited KUB perform for evaluating NG tube . COMPARISON: No prior studies for comparison. FINDINGS: NG tube tip in the stomach. Visualized bowel gas pattern is unremarkable. IMPRESSION: 1: NG tube tip in the stomach. Reviewed, dictated and finalized at location A.
--- NOTE | ~2021-08-02 | XR_ITS ---
EXAMINATION: XR chest 1V portable DATE: 08/03/2021 04:05 INDICATION: Increased oxygen demand TECHNIQUE: frontal view of the chest was obtained. COMPARISON: Chest radiograph dated 08/02/2021 FINDINGS: Interval elevation of the left hemidiaphragm. Increasing opacities in the bilateral mid and lower tanya g zones. No pleural effusion or pneumothorax. Mild cardiomegaly. Median sternotomy wires, ostial aashish ers and mediastinal surgical clips consistent with prior coronary artery bypass grafting. IMPRESSION: 1. Increasing opacities in the bilateral mid and lower lung zones which could represent atelectasis, pneumonia, pulmonary edema or some combination thereof. 2. Interval elevation of the left hemidiaphragm 3. Cardiomegaly. Reviewed, dictated and finalized at location A. IMPRESSION: 1. Increasing opacities in the bilateral mid and lower lung zones which could r epresent atelectasis, pneumonia, pulmonary edema or some combination thereof. 2. Interval elevation of the left hemidiaphragm 3. Cardiomegaly.
--- NOTE | ~2021-08-02 | XR_ITS ---
CORRECTED REPORT PROCEDURE CORRECTED. 08/08/2021 sef XR abdomen NG/feed tube rechec INDICATION: Evaluate NG tube position. TECHNIQUE: Limited KUB perform for evaluating NG tube . COMPARISON: 08/05/2021 FINDINGS: NG tube has been retracted, now in the distal esophagus. Visualized bowel gas pattern is nonspecific. IMPRESSION: 1: NG tube retracted into the distal esophagus. Reviewed, dictated and finalized at location A. MTDD
--- NOTE | ~2021-08-02 | XR_ITS ---
EXAMINATION: XR barium swallow modified EXAM DATE: 08/04/2021 09:24 INDICATION: Dysphagia. TECHNIQUE: Modified barium esophagram was performed by speech pathologist with radiologist Dr. Geovanny Baker present to administered fluoroscopy. Speech pathologist administered barium in varying consis tencies as per speech pathologist documentation. This was recorded on tape. There was total fluorosc opic time of 0.5. The DAP for this procedure was 0.4 Gycm2. A total of 2 images sent to PACS from t he exam. FINDINGS: Oral stage: Delayed trigger. Pharyngeal phase: Dysfunction. Laryngeal penetration: Demonstrated. Aspiration: Demonstrated, silent. Laryngeal sensitivity: Absent. IMPRESSION: Silent aspiration demonstrated; Please refer to speech pathologist findings and specifi c feeding recommendations. Reviewed, dictated and finalized at location A. IMPRESSION: Silent aspiration demonstrated; Please refer to speech pathologis t findings and specific feeding recommendations.
--- NOTE | ~2021-08-02 | XR_ITS ---
EXAMINATION: XR chest 1V portable INDICATION: Shortness of breath TECHNIQUE: Portable AP chest at 1517 hours COMPARISON: 07/30/2021 FINDINGS: Cardiomegaly is noted. There is a diffuse interstitial pattern. There is no pleural effusio n or pneumothorax. Median sternotomy wires and mediastinal surgical clips are seen, likely from prior coronary artery bypass grafting. IMPRESSION: 1. Cardiomegaly with mild pulmonary edema. Reviewed, dictated and finalized at location A.
--- NOTE | 2021-08-02 17:11 | ECG_ITS ---
Measurements Intervals [place] Rate: 134 P: CT: 0 QRS: 48 QRSD: 90 T: 14 QT: 306 QTc: 457 Interpretive Statements ATRIAL FIBRILLATION WITH RAPID VENTRICULAR RESPONSE NONSPECIFIC T-WAVE ABNORMALITY- INF/HIGH LAT LEADS ABNORMAL ECG Electronically Signed On 08-03-2021 15:40:42 CDT by Aníbal Floyd D.O.
[2021-08-02] MEDS: FUROSEMIDE INJ 100 MG/10 ML VIAL 80 MG IV PUSH (17:30)
[2021-08-02 17:47] LABS: Add Urine Microscopic? YES; Amorphous Sediment Urine Few; Appearance Urine Cloudy (Clear); Bacteria Urine Trace /hpf; Bilirubin Urine Negative (Negative); Blood Urine 2+ (Negative); Color Urine Amber (Yellow); Glucose Urine UA Negative (Negative); Ketones Urine Negative (Negative); Leukocyte Esterase Ur 1+ LEU/UL (Negative); Mucus Urine Rare /lpf; Nitrate Urine Negative (Negative); Protein Urine 2+ mg/dL (Negative); RBC Urine >75 /hpf (0-2); Specific Grav Ur 1.021 (1.001-1.035); Squamous Epithelial Cell Urine Occasional /hpf (Few); WBC Urine 16-20 /hpf
[2021-08-02 17:47] LABS: INR 1.1; Partial Thromboplastin Time 28.6 SECONDS (22.3-36.8); Prothrombin Time 13.6 Seconds (11.1-14.7)
[2021-08-02 17:48] LABS: Anion Gap 9 mmol/L (8-16); Blood Urea Nitrogen 50 mg/dL (9-20); Calcium 8.3 mg/dL (8.4-10.2); Carbon Dioxide 26 mmol/L (22-30); Chloride 104 mmol/L (98-107); Estimated Glomerular Filt Rate 34; Glucose 231 mg/dL (65-110); Potassium 4.5 mmol/L (3.4-5.0); Sodium 139 mmol/L (137-145)
[2021-08-02 17:49] LABS: Lactic Acid Reflex 1.5 mmol/L (0.7-2.1)
[2021-08-02 17:50] LABS: Hematocrit 31.8 % (42.0-52.0); Hemoglobin 10.1 g/dL (14.0-18.0); Immature Platelet Fraction Pct 9.3 % (0.9-11.2); Mean Corpuscular HGB Conc 31.8 g/dl (32-36); Mean Corpuscular Volume 103.9 fl (80-100); Mean Platelet Volume 12.1 fl (7.4-10.4); Platelet Count Result 136 k/mm3 (150-375); Red Blood Count 3.06 M/mm3 (4.6-6.20); Red Cell Distribution Width 12.4 % (11.5-14.5)
[2021-08-02 18:09] LABS: NT Pro B Type Natriuretic Pept 15300 pg/mL (5-100); Troponin I 0.173 ng/mL (0.000-0.034)
--- NOTE | 2021-08-02 18:17 | ED.SOB ---
HPI - SOB/Dyspnea General Chief Complaint: Shortness of Breath/Dyspnea Stated Complaint: SOB, Low BP Time Seen by Provider: 08/02/21 17:12 Source: patient, family, EMS, RN notes reviewed and old records reviewed History of Present Illness HPI Narrative: Patient with history of CHF chronic kidney disease diabetes dementia with recent hospitalization for urinary tract infection presents with shortness of breath from a custodial facility. Facility reports he has had increasing shortness of breath has had required 4 L of oxygen nasal cannula patient is not requiring oxygen at baseline. Given his increased respiratory effort he was referred to the ER for evaluation. Related Data Home Medications Medication Instructions Recorded Confirmed aspirin 81 mg tablet,delayed 81 mg PO DAILY 06/29/21 07/30/21 release brimonidine 0.2 % eye drops 1 drp EACH EYE Q12H 06/29/21 07/30/21 carvedilol 3.125 mg tablet 3.125 mg PO Q12H 06/29/21 07/30/21 desvenlafaxine 100 mg 100 mg PO DAILY 06/29/21 07/30/21 tablet,extended release 24 hr dorzolamide 22.3 mg-timolol 6.8 1 drp EACH EYE DAILY 06/29/21 07/30/21 mg/mL eye drops finasteride 5 mg tablet 5 mg PO DAILY 06/29/21 07/30/21 fluticasone propionate 50 2 spray INTRANASAL DAILY 06/29/21 07/30/21 mcg/actuation nasal spray,suspension folic acid 1 mg tablet 1 mg PO DAILY 06/29/21 07/30/21 furosemide 20 mg tablet 10 mg PO QAM 06/29/21 07/30/21 lisinopril 5 mg tablet 5 mg PO DAILY 06/29/21 07/30/21 simvastatin 40 mg tablet 40 mg PO DAILY 06/29/21 07/30/21 tamsulosin 0.4 mg capsule 0.4 mg PO DAILY 06/29/21 07/30/21 polysaccharide iron complex 150 mg PO BID 07/30/21 07/30/21 [iFerex 150] zinc oxide 1 applic TOPICAL DAILY 07/30/21 07/30/21 ferrous sulfate 325 mg PO DAILY 07/31/21 07/31/21 Allergies Allergy/AdvReac Type Severity Reaction Status Date / Time watermelon Allergy Severe SOB Verified 08/02/21 17:31 Review of Systems Review of Systems: ROS unobtainable: Yes unobtainable due to mental status (Patient alert and oriented to self only) PMFSH Social History Social History Social History: Smoking status: Former smoker Second hand tobacco smoke exposure: Yes Alcohol intake: never Substance use: never Substance use type: does not use Gender identity (if verbalized by the patient): Male Sexual Orientation (if Verbalized by the Patient): Straight or Heterosexual Spiritual care concerns: No Exam Narrative: GENERAL: Well-appearing, well-nourished, and in no acute distress. HEAD: Normocephalic, atraumatic. EYES: PERRLA and EOMI. ENT: Nares clear, no rhinorrhea or epistaxis. Mucous membranes moist. NECK: Supple. No masses. CHEST: Increased respiratory effort diffuse crackles HEART: Irregular tachycardia ABDOMEN: Soft, nontender, nondistended, normal active bowel sounds. EXTREMITIES: Normal range of motion. 1+ symmetric pitting edema SKIN: Warm, dry, no rash. NEURO: No focal deficits. Alert and oriented x3. PSYCH: Normal mood and affect. Course Reevaluation(s) Reevaluation #1: Patient with persistent tachycardia to the 1 teens diltiazem drip initiated. Given patient's tachycardia and increased respiratory effort patient was admitted to the hospitalist team for further management. Patient was tolerating nasal cannula well. Family comfortable with BiPAP if patient deteriorates patient is DNR/DNI Date: 08/02/21 Time: 19:02 Vital Signs Vital signs: Vital Signs Temperature 36.6 C 08/02/21 17:00 Pulse Rate 121 H 08/02/21 17:00 Respiratory Rate 36 H 08/02/21 17:00 Blood Pressure 107/71 08/02/21 17:00 Pulse Oximetry 98 08/02/21 17:00 Temperature 36.6 C 08/02/21 17:00 Pulse Rate 110 H 08/02/21 20:00 Respiratory Rate 29 H 08/02/21 20:00 Blood Pressure 109/66 08/02/21 20:00 Pulse Oximetry 98 08/02/21 20:00 MDM - SOB/Dyspnea MDM Narrative Medical decision making
[2021-08-02] MEDS: dilTIAZem HCl INJ 25 MG/5 ML VIAL 10 MG IV PUSH (18:28)
[2021-08-02 18:30] LABS: Band Neutrophils Percent 16 % (0-6); Monocytes Percent Manual 6 % (3-9); Neutrophils Percent Manual 72 % (46-73); Total Cells Counted 100
[2021-08-02 18:32] LABS: Hypochromasia 1+ (NORMAL)
--- NOTE | 2021-08-02 19:47 | PM.IMHP ---
H&P: HPI History of Present Illness Date/Time: 08/02/21 19:47 Chief Complaint: Abnormal pulse Narrative: This is an 85-year-old male with past medical history significant for Alzheimer's dementia, coronary artery disease status post coronary artery bypass graft, chronic Gomez catheter, dyslipidemia, hypertension, COPD, benign prostatic hyperplasia, glaucoma. Patient was just recently discharged to alf/rehabilitation however today staff was concerned after patient had a fast pulse as shortness of breath and decreases his oxygen saturation and was brought to the emergency room for further evaluation. Upon arrival to emergency room patient was found to have atrial fibrillation with rapid ventricular response preliminary workup was significant for elevated BUN and creatinine from patient's baseline and chest x-ray with pulmonary edema. Patient was placed on diltiazem drip and admitted to telemetry unit. Most of the history has been obtained from reviewing prior medical records emergency room records and some who is at bedside. Review of Systems Review of Systems: ROS unobtainable: Yes unobtainable due to medical condition (Alzheimer's dementia) [facility] Family History Family History (Updated 08/02/21 @ 22:31 by JOSY Mccarthy) Father Cancer Grandparent Cancer Mother Cancer Sibling Cancer Social History Social History Social History: Smoking packs per day: 1 Smoking cigarettes per day: 20.0 Years smoked: 10 Smoking pack-years: 10.00 Smoking status: Former smoker Tobacco type: cigarettes Second hand tobacco smoke exposure: Yes Smoking end date: 11/04/1959 Alcohol intake: current Drinks per week: 1 Substance use: never Substance use type: does not use Gender identity (if verbalized by the patient): Male Sexual Orientation (if Verbalized by the Patient): Straight or Heterosexual Spiritual care concerns: No Meds Home Medications and Allergies Home Medications Medication Instructions Recorded Confirmed Type aripiprazole 5 mg tablet 2.5 mg PO DAILY #90 tablet 06/29/21 08/03/21 Rx aspirin 81 mg tablet,delayed 81 mg PO DAILY 06/29/21 08/03/21 History release brimonidine 0.2 % eye drops 1 drp EACH EYE Q12H 06/29/21 08/03/21 History carvedilol 3.125 mg tablet 3.125 mg PO Q12H 06/29/21 08/03/21 History desvenlafaxine 100 mg 100 mg PO DAILY 06/29/21 08/03/21 History tablet,extended release 24 hr dorzolamide 22.3 mg-timolol 6.8 1 drp EACH EYE DAILY 06/29/21 08/03/21 History mg/mL eye drops finasteride 5 mg tablet 5 mg PO DAILY 06/29/21 08/03/21 History fluticasone propionate 50 2 spray INTRANASAL DAILY 06/29/21 08/03/21 History mcg/actuation nasal spray,suspension folic acid 1 mg tablet 1 mg PO DAILY 06/29/21 08/03/21 History furosemide 20 mg tablet 10 mg PO QAM 06/29/21 08/03/21 History lisinopril 5 mg tablet 5 mg PO DAILY 06/29/21 08/03/21 History mirtazapine 15 mg tablet 15 mg PO QHS #90 tablet 06/29/21 08/03/21 Rx simvastatin 40 mg tablet 40 mg PO DAILY 06/29/21 08/03/21 History tamsulosin 0.4 mg capsule 0.4 mg PO DAILY 06/29/21 08/03/21 History polysaccharide iron complex 150 mg PO BID 07/30/21 08/03/21 History [iFerex 150] zinc oxide 1 applic TOPICAL DAILY 07/30/21 08/03/21 History amoxicillin-pot clavulanate 1 tablet PO Q12H #14 tablet 07/31/21 08/03/21 Rx ferrous sulfate 325 mg PO DAILY 07/31/21 08/03/21 History budesonide [Pulmicort] 0.5 mg INHALATION DAILY 08/03/21 08/03/21 History ipratropium-albuterol 3 ml INHALATION QID 08/03/21 08/03/21 History Allergies Allergy/AdvReac Type Severity Reaction Status Date / Time watermelon Allergy Severe SOB Verified 08/02/21 17:31 Vital Signs Vital Signs - 24 hr 08/02/21 17:00 08/02/21 17:03 08/02/21 17:15 Temperature 97.8 F Pulse Rate 121 H 124 H 125 H Respiratory Rate 36 H 37 H 37 H Blood Pressure 107/71 Pulse Oximetry 98 96 100
--- NOTE | 2021-08-02 21:23 | ADMGEN ---
This patient, Eladio Bello, was admitted to IMU Room 212-01. Patient/family oriented to hospital policies and general routines including ID bracelet, bed and alarms, visiting hours, pain management, procedures, bathroom and other care routines, personal items, smoking policy, room service/diet, and visiting hours. Information on how to activate the Rapid Response Team has been discussed. Patient/Family are encouraged to report perceived risks to care and to ask questions if they do not understand what they are told or what they should do.
[2021-08-02 21:30] LABS: Glucose Point of Care 178 mg/dl (65-105)
[2021-08-03] VITALS (25 sets, daily range): BP systolic 109–126; BP diastolic 46–72; PULSE 101–130; RESP 18–28; TEMP 36.3–36.9; O2SAT 93–100; BMI 31.6
--- NOTE | 2021-08-03 | ECHO_ITS ---
Patient Info Name: Eladio Bello Age: 85 years : 1935 Gender: Male Ht: 71 in Wt: 226 lbs BSA: 2.29 m2 HR: 110 bpm BP: 109 / 52 mmHg Heart Rhythm: Atrial Fibrillation Technical Quality: Fair Exam Date: 08/03/2021 2:05 PM Exam Location: [facility] Pulmonary Exam Room: [facility] Patient Status: Inpatient Admit Date: 08/03/2021 Staff Ordering Physician: Aníbal Floyd DO Synchro Assembler: Dorothy Cartagena RDCS Attending Provider: Kellie Pascual MD Referring Physician: Everett CROOKS; Exam Type: CA echo doppler color flow Study Info Indications - atrial fib - chf Complete two-dimensional, color flow and Doppler transthoracic echocardiogram is performed. Summary 1. Complete two-dimensional, color flow and Doppler transthoracic echocardiogram is performed. 2. Left ventricular chamber dimension is normal. 3. Left ventricular systolic function is normal, estimated at 55-60%. 4. The left ventricular diastolic function is abnormal. 5. E/e' 11 is mildly elevated. 6. Left atrial chamber dimension is severely enlarged. 7. There is moderate aortic valve sclerosis. 8. There is mild aortic valve regurgitation. 9. There is trace mitral valve regurgitation. 10. There is trace tricuspid valve regurgitation. 11. Mild pulmonary hypertension, estimated pulmonary arterial systolic pressure is 41 mmHg. Left Ventricle E/e' 11 is mildly elevated. Left ventricular chamber dimension is normal. Left ventricular systolic function is normal, estimated at 55-60%. The left ventricular diastolic function is abnormal. Right Ventricle Right ventricular chamber dimension is normal. Right ventricular systolic function is normal. Left Atria Left atrial chamber dimension is severely enlarged. Right Atria Right atrial chamber dimension is normal. Aortic Valve The aortic valve is trileaflet. There is moderate aortic valve sclerosis. There is no aortic valve stenosis. There is mild aortic valve regurgitation. Pulmonic Valve There is no pulmonic regurgitation. Mitral Valve There is no mitral valve stenosis. There is trace mitral valve regurgitation. Tricuspid Valve There is trace tricuspid valve regurgitation. Mild pulmonary hypertension, estimated pulmonary arterial systolic pressure is 41 mmHg. Pericardium/Pleural There is no pericardial effusion. Inferior Vena Cava Normal inferior vena cava with >50% collapse upon inspiration consistent with normal right atrial pressure, 5 mmHg. Aorta The aortic root size at the sinus of Valsalva is normal. Left Ventricular Outflow Tract Name Value Normal LVOT 2D LVOT Diameter 2.2 cm LVOT Doppler LVOT Peak Gradient 6 mmHg LVOT Mean Gradient 3 mmHg LVOT VTI 18 cm LVOT VTI/AV VTI Ratio 0.7 LVOT Stroke Volume 72 ml LVOT CO 19.2 l/min LVOT CI 8.4 l/min/m2 Pulmonic Valve
[2021-08-03] MEDS: ALBUTEROL SULFATE NEB 2.5 MG/0.5 ML INH INHALATION ×4 (02:22→19:59)
[2021-08-03] MEDS: ZINC OXIDE 20% OINT 30 GM TUBE 1 APPLIC TOPICAL (08:39)
[2021-08-03] MEDS: SIMVASTATIN 20 MG TABLET 40 MG PO (08:40)
[2021-08-03] MEDS: ASPIRIN 81 MG ENTERIC TABLET PO (08:40)
[2021-08-03] MEDS: DESVENLAFAXINE SUCCINATE 50 MG TAB.ER.24H 100 MG PO (08:40)
[2021-08-03] MEDS: POLYSACCHARIDE IRON COMPLEX 150 MG CAPSULE PO ×2 (08:40→17:52)
[2021-08-03] MEDS: FINASTERIDE 5 MG TABLET PO (08:40)
[2021-08-03] MEDS: TAMSULOSIN HCL 0.4 MG CAPSULE PO (08:40)
[2021-08-03] MEDS: FOLIC ACID 1 MG TABLET PO (08:40)
[2021-08-03] MEDS: AMOXICILLIN/CLAVULANATE K 875-125 MG TAB 1 TABLET PO (08:40)
[2021-08-03] MEDS: carvediloL 3.125 MG TABLET PO (08:41)
[2021-08-03] MEDS: DORZOLAMIDE/TIMOLOL OPHTH SOL 10 ML BOTTLE 1 DROP EACH EYE (08:42)
[2021-08-03] MEDS: FUROSEMIDE 10 MG TABLET PO (08:42)
[2021-08-03] MEDS: FLUTICASONE PROPIONATE 0.05% NA SPR 16 GM BTL (*BKC) 2 SPRAY NASAL (08:42)
[2021-08-03] MEDS: FERROUS SULFATE 324 MG TABLET PO (08:42)
[2021-08-03] MEDS: lisinopriL 5 MG TABLET PO (08:42)
[2021-08-03] MEDS: BRIMONIDINE TARTRATE 0.2% OP SOLN 5 ML BTL 1 DROP EACH EYE ×2 (08:42→21:31)
[2021-08-03] MEDS: ARIPiprazole 2.5 MG TABLET PO (08:42)
[2021-08-03] MEDS: BUDESONIDE RESPULE NEB 0.5 MG/2 ML AMP INHALATION (09:56)
[2021-08-03] MEDS: IPRATROPIUM BR 0.02% INH SOLN 0.5 MG/2.5 ML VIAL INHALATION ×3 (09:56→19:59)
--- NOTE | 2021-08-03 13:24 | ECG_ITS ---
Measurements Intervals [place] Rate: 105 P: TX: 0 QRS: 28 QRSD: 93 T: 23 QT: 360 QTc: 478 Interpretive Statements ATRIAL FIBRILLATION WITH RAPID VENTRICULAR RESPONSE NONSPECIFIC T-WAVE ABNORMALITY- INFERIOR LEADS ABNORMAL ECG Electronically Signed On 08-03-2021 14:26:55 CDT by Aníbal Floyd D.O.
--- NOTE | 2021-08-03 13:25 | PM.CNCAR ---
Assessment and Plan Assessment and plan (1) CHF exacerbation: Qualifiers: Heart failure type: unspecified Qualified Code(s): I50.9 - Heart failure, unspecified Code(s): I50.9 - Heart failure, unspecified Status: Acute Assessment and Plan: On very low dose diuretic with Lasix 10 mg PO daily. Given elevated NT proBNP and CXR with mild pulm edema, would start Lasix 20 mg IV BID. Obtain echo to assess LV function. (2) Atrial fibrillation with RVR: Code(s): I48.91 - Unspecified atrial fibrillation Status: Acute Assessment and Plan: [id number] score 7. On aspirin 81 mg daily currently. Would benefit from NOAC if OK by urology with history of hematuria with indwelling murillo catheter. Rate control with Diltiazem drip and Coreg. (3) CAD (coronary artery disease), autologous vein bypass graft: Code(s): I25.810 - Atherosclerosis of coronary artery bypass graft(s) without angina pectoris Status: Acute Assessment and Plan: Stable. Need to obtain more history about CABG. (4) Hypertension: Code(s): I10 - Essential (primary) hypertension Status: Acute Assessment and Plan: Stable. (5) Hyperlipidemia: Code(s): E78.5 - Hyperlipidemia, unspecified Status: Acute Assessment and Plan: On Simvastatin. (6) Chronic indwelling Murillo catheter: Code(s): Z97.8 - Presence of other specified devices Status: Acute History of Present Illness History of Present Illness Consult date/time: 08/03/21 13:25 Reason for consult: Atrial fibrillation. 85 yr old man presented to ED from [facility] due to sob and fast HR. He has a history of dementia, DM, hypertension, CAD/CABG (details not available to me), stroke. He is alert and oriented x 1 to his name. He answers some questions but not reliable. He cannot walk for some time, unsure the reason. Denies chest pain or sob at this time. EKG done yesterday showed atrial fibrillation at 134 bpm, nonspecifict T wave in inf/lat leads. Hb 10.1, Cr 1.9/GFR 34. NTproBnp 15,300. He is currently on Diltiazem drip. Reason For Visit: chf exacerbations Review of Systems Review of Systems: All systems reviewed & are unremarkable except as noted in HPI and below ROS unobtainable: Yes unobtainable due to mental status Cardiovascular: Cardiovascular: Reports as per HPI and Denies chest pain Respiratory: Respiratory: Reports as per HPI and Denies dyspnea Gastrointestinal: Gastrointestinal: Reports as per HPI and Denies abdominal pain [facility] Family History Family History (Updated 08/02/21 @ 22:31 by JOSY Mccarthy) Father Cancer Grandparent Cancer Mother Cancer Sibling Cancer Social History Social History Social History: Smoking packs per day: 1 Smoking cigarettes per day: 20.0 Years smoked: 10 Smoking pack-years: 10.00 Smoking status: Former smoker Tobacco type: cigarettes Second hand tobacco smoke exposure: Yes Smoking end date: 11/04/1959 Alcohol intake: current Drinks per week: 1 Substance use: never Substance use type: does not use Gender identity (if verbalized by the patient): Male Sexual Orientation (if Verbalized by the Patient): Straight or Heterosexual Spiritual care concerns: No Meds Home Medications and Allergies Home Medications Medication Instructions Recorded Confirmed Type aripiprazole 5 mg tablet 2.5 mg PO DAILY #90 tablet 06/29/21 08/03/21 Rx aspirin 81 mg tablet,delayed 81 mg PO DAILY 06/29/21 08/03/21 History release brimonidine 0.2 % eye drops 1 drp EACH EYE Q12H 06/29/21 08/03/21 History carvedilol 3.125 mg tablet 3.125 mg PO Q12H 06/29/21 08/03/21 History desvenlafaxine 100 mg 100 mg PO DAILY 06/29/21 08/03/21 History tablet,extended release 24 hr dorzolamide 22.3 mg-timolol 6.8 1 drp EACH EYE DAILY 06/29/21 08/03/21 History mg/mL eye drops
--- NOTE | 2021-08-03 15:40 | PC.NURSE ---
On 08/03/21, the student, [Inessa Pendleton], provided care and completed [facility] documentation on this patient. I have reviewed the student's documentation and agree with the findings.
--- NOTE | 2021-08-03 15:48 | PM.IMPN ---
Progress Note: A&P Assessment and Plan (1) CHF exacerbation: Qualifiers: Heart failure type: unspecified Qualified Code(s): I50.9 - Heart failure, unspecified Code(s): I50.9 - Heart failure, unspecified Status: Acute Assessment and Plan: Likely secondary to uncontrolled heart rate Diurese as needed Repeat echocardiogram Last echocardiogram is being 6+ months 08/03 interval history: patient is elderly with Alzheimer dementia, unable to provide detailed review of symptom presented with a with shortness of breath with pulmonary edema currently patient is on Lasix 10 mg p.o. q.day seen by cardiology and started the patient on Lasix 20 mg IV b.i.d., patient with atrial fibrillation with RVR was started on diltiazem drip read is trending down, patient is off the drip and on metoprolol 25 mg q.6 hours, [id number] score 7. On aspirin 81 mg daily currently. patient will benefit from anticoagulation to prevent stroke however patient with hematuria will consult Urology for further recommendation, will continue to monitor will have PT OT evaluate the patient. (2) Hypoxia: Code(s): R09.02 - Hypoxemia Status: Acute Assessment and Plan: Secondary to above Supplemental oxygen by nasal cannula as needed Try and keep oxygen saturation at 92% (3) Atrial fibrillation with RVR: Code(s): I48.91 - Unspecified atrial fibrillation Status: Acute Assessment and Plan: Currently on diltiazem drip Cardiology has been consulted (4) ALEXANDER (acute kidney injury): Code(s): N17.9 - Acute kidney failure, unspecified Status: Acute Assessment and Plan: Likely to be cardiorenal syndrome Continue to monitor (5) Coronary artery disease: Code(s): I25.10 - Atherosclerotic heart disease of [place] coronary artery without angina pectoris Status: Acute Assessment and Plan: Resume home meds Continue to monitor (6) Diabetes mellitus type 2, controlled: Code(s): E11.9 - Type 2 diabetes mellitus without complications Status: Acute Assessment and Plan: Diet controlled Subjective Date/time seen: 08/03/21 15:48 Chief Complaint: Abnormal pulse Narrative: This is an 85-year-old male with past medical history significant for Alzheimer's dementia, coronary artery disease status post coronary artery bypass graft, chronic Gomez catheter, dyslipidemia, hypertension, COPD, benign prostatic hyperplasia, glaucoma. Patient was just recently discharged to retirement/rehabilitation however today staff was concerned after patient had a fast pulse as shortness of breath and decreases his oxygen saturation and was brought to the emergency room for further evaluation. Upon arrival to emergency room patient was found to have atrial fibrillation with rapid ventricular response preliminary workup was significant for elevated BUN and creatinine from patient's baseline and chest x-ray with pulmonary edema. Patient was placed on diltiazem drip and admitted to telemetry unit. Most of the history has been obtained from reviewing prior medical records emergency room records and some who is at bedside. 08/03 interval history: patient is elderly with Alzheimer dementia, unable to provide detailed review of symptom presented with a with shortness of breath with pulmonary edema currently patient is on Lasix 10 mg p.o. q.day seen by cardiology and started the patient on Lasix 20 mg IV b.i.d., patient with atrial fibrillation with RVR was started on diltiazem drip read is trending down, patient is off the drip and on metoprolol 25 mg q.6 hours, [id number] score 7. On aspirin 81 mg daily currently. patient will benefit from anticoagulation to prevent stroke however patient with hematuria will consult Urology for further recommendation, will continue to monitor will have PT OT evaluate the patient. Review of Systems Review of Systems: ROS unobtainable: Yes unobtainable due to medical con
[2021-08-03] MEDS: METOPROLOL TARTRATE 25 MG TABLET PO (18:14)
[2021-08-03] MEDS: FUROSEMIDE INJ 40 MG/4 ML VIAL 20 MG IV PUSH (18:14)
[2021-08-04] VITALS (22 sets, daily range): BP systolic 100–123; BP diastolic 57–68; PULSE 91–114; RESP 16–24; TEMP 36.1–36.6; O2SAT 94–99
[2021-08-04] MEDS: IPRATROPIUM BR 0.02% INH SOLN 0.5 MG/2.5 ML VIAL INHALATION ×4 (02:35→21:23)
[2021-08-04] MEDS: ALBUTEROL SULFATE NEB 2.5 MG/0.5 ML INH INHALATION ×4 (02:36→21:22)
[2021-08-04] MEDS: DORZOLAMIDE/TIMOLOL OPHTH SOL 10 ML BOTTLE 1 DROP EACH EYE (08:39)
[2021-08-04] MEDS: FUROSEMIDE INJ 40 MG/4 ML VIAL 20 MG IV PUSH ×2 (08:39→18:11)
[2021-08-04] MEDS: BRIMONIDINE TARTRATE 0.2% OP SOLN 5 ML BTL 1 DROP EACH EYE ×2 (08:39→20:25)
[2021-08-04] MEDS: FLUTICASONE PROPIONATE 0.05% NA SPR 16 GM BTL (*BKC) 2 SPRAY NASAL (08:39)
--- NOTE | 2021-08-04 08:46 | PM.PNCARD ---
Progress Note: A&P Assessment and Plan (1) CHF exacerbation: Qualifiers: Heart failure type: unspecified Qualified Code(s): I50.9 - Heart failure, unspecified Code(s): I50.9 - Heart failure, unspecified Status: Acute Assessment and Plan: Given elevated NT proBNP and CXR with mild pulm edema, he is on Lasix 20 mg IV BID. Echo shows EF 55-60%, distolic dysfunction (E/e' 11), severe LAE, RVSP 41 mmHg. (2) Atrial fibrillation with RVR: Code(s): I48.91 - Unspecified atrial fibrillation Status: Acute Assessment and Plan: [id number] score 7. On aspirin 81 mg daily currently. Would benefit from NOAC if OK by urology with history of hematuria with indwelling murillo catheter. Rate control with Diltiazem drip and Metoprolol. (Has not been receiving Metoprolol due to NPO). (3) CAD (coronary artery disease), autologous vein bypass graft: Code(s): I25.810 - Atherosclerosis of coronary artery bypass graft(s) without angina pectoris Status: Acute Assessment and Plan: Stable. Need to obtain more history about CABG. (4) Hypertension: Code(s): I10 - Essential (primary) hypertension Status: Acute Assessment and Plan: Stable. (5) Hyperlipidemia: Code(s): E78.5 - Hyperlipidemia, unspecified Status: Acute Assessment and Plan: On Simvastatin. (6) Chronic indwelling Murillo catheter: Code(s): Z97.8 - Presence of other specified devices Status: Acute Subjective Date/time seen: 08/04/21 08:46 Patient is not oriented. No chest pain or sob. Exam Const: General: cooperative, comfortable, no acute distress, alert and confusion Resp: Auscultation: clear to auscultation bilaterally, no crackles, no rales, no rhonchi and no wheezes Cardio: Jugular venous distension: no JVD Rate: tachycardic Rhythm: abnormal rhythm Heart sounds: no murmurs Peripheral pulses: dorsalis pedis present GI: GI Palp: No abdominal tenderness and Yes Soft to palpation Neuro: General: oriented to person, No oriented to place and No oriented to time Extrem: Right lower extremity: no edema Left lower extremity: no edema Objective Data Vital Signs Vital Signs: Vital Signs - 24 hr 08/03/21 09:57 08/03/21 10:00 08/03/21 10:08 Temperature Pulse Rate 106 H 114 H 108 H Respiratory Rate 18 18 Blood Pressure Pulse Oximetry 94 08/03/21 11:52 08/03/21 12:00 08/03/21 14:00 Temperature 97.5 F L Pulse Rate 120 H 107 H 110 H Respiratory Rate 26 H Blood Pressure 109/52 L Pulse Oximetry 96 08/03/21 15:14 08/03/21 15:19 08/03/21 15:24 Temperature Pulse Rate 101 H 102 H Respiratory Rate 18 18 Blood Pressure Pulse Oximetry 95 08/03/21 15:59 08/03/21 16:00 08/03/21 18:14 Temperature 98.4 F Pulse Rate 111 H 111 H 111 H Respiratory Rate 24 H Blood Pressure 112/55 L Pulse Oximetry 98 08/03/21 20:00 08/03/21 20:10 08/03/21 22:00 Temperature 97.7 F Pulse Rate 130 H 115 H 113 H Respiratory Rate 28 H 24 H Blood Pressure 126/72 Pulse Oximetry 95 94 08/04/21 00:00 08/04/21 02:00 08/04/21 02:30 Temperature 97.3 F L Pulse Rate 92 100 95 Respiratory Rate 18 24 H Blood Pressure 100/58 L Pulse Oximetry 95 08/04/21 02:42 08/04/21 04:00 08/04/21 06:00 Temperature 97 F L Pulse Rate 101 H 102 H 91 Respiratory Rate 20 18 Blood Pressure 112/57 L Pulse Oximetry 94 Intake/Output Intake/Output: Intake & Output 08/01/21 08/02/21 08/03/21 08/04/21 23:59 23:59 23:59 23:59 Intake Total 50 200 100 Output Total 1750 500 Balance 50 -1700 -400 Meds/Results Medications: Active Medications Generic Name Dose Route Start Last Admin Trade Name Freq PRN Reason Stop Dose Admin Albuterol 2.5 mg 08/03/21 01:10 08/03/21 02:22 Albuterol Sulfate Neb 2.5 Mg/0.5 Ml Inh INHALATION 2.5 mg Q4HRT PRN Administration Shortness Of Breath Albuterol 2.5 mg 08/03/21 0
--- NOTE | 2021-08-04 09:43 | PCSTNOTE ---
Please refer to the Bedside Swallow Evaluation in the EMR. Please note, silent aspiration cannot be ruled out at bedside.
--- NOTE | 2021-08-04 09:44 | PCSTNOTE ---
Please refer to the Modified Barium Swallow Evaluation in the EMR.
[2021-08-04] MEDS: BUDESONIDE RESPULE NEB 0.5 MG/2 ML AMP INHALATION (09:58)
[2021-08-04 11:24] LABS: Hematocrit 31.7 % (42.0-52.0); Hemoglobin 9.9 g/dL (14.0-18.0); Immature Platelet Fraction Pct 7.5 % (0.9-11.2); Mean Corpuscular HGB Conc 31.2 g/dl (32-36); Mean Corpuscular Hemoglobin 32.5 pg (26-34); Mean Corpuscular Volume 103.9 fl (80-100); Mean Platelet Volume 11.5 fl (7.4-10.4); Platelet Count Result 151 k/mm3 (150-375); Red Blood Count 3.05 M/mm3 (4.6-6.20); Red Cell Distribution Width 12.2 % (11.5-14.5); White Blood Count 6.5 K/mm3 (4.5-10.0)
[2021-08-04 11:36] LABS: Anion Gap 9 mmol/L (8-16); Blood Urea Nitrogen 61 mg/dL (9-20); Calcium 8.4 mg/dL (8.4-10.2); Carbon Dioxide 29 mmol/L (22-30); Chloride 107 mmol/L (98-107); Estimated CRCL calculation 38 ml/min; Estimated Glomerular Filt Rate 44; Glucose 173 mg/dL (65-110); Magnesium 2.5 mg/dL (1.6-2.3); Potassium 3.5 mmol/L (3.4-5.0); Sodium 145 mmol/L (137-145)
[2021-08-04] MEDS: LIDOCAINE 5% PATCH 3 PATCH TRANSDERM (14:48)
[2021-08-04] MEDS: methylPREDNISolone SOD SUCC 125 MG VIAL IV PUSH (14:50)
--- NOTE | 2021-08-04 16:52 | PM.IMPN ---
Progress Note: A&P Assessment and Plan (1) CHF exacerbation: Qualifiers: Heart failure type: unspecified Qualified Code(s): I50.9 - Heart failure, unspecified Code(s): I50.9 - Heart failure, unspecified Status: Acute Assessment and Plan: Likely secondary to uncontrolled heart rate Diurese as needed Repeat echocardiogram Last echocardiogram is being 6+ months 08/05/21 14:40 08/03 interval history: patient is elderly with Alzheimer dementia, unable to provide detailed review of symptom presented with a with shortness of breath with pulmonary edema currently patient is on Lasix 10 mg p.o. q.day seen by cardiology and started the patient on Lasix 20 mg IV b.i.d., patient with atrial fibrillation with RVR was started on diltiazem drip read is trending down, patient is off the drip and on metoprolol 25 mg q.6 hours, [id number] score 7. On aspirin 81 mg daily currently. patient will benefit from anticoagulation to prevent stroke however patient with hematuria will consult Urology for further recommendation, will continue to monitor will have PT OT evaluate the patient. 08/04 interval history: patient is elderly with dementia complains of back pain started the patient on Solu-Medrol, gabapentine and Lidoderm patch, patient feels swallow study, will placed NG tube, patient rate is controlled with diltiazem drip unable to switch over as patient is NPO, seen by nurse reviewer, will continue to monitor will have PT OT evaluate the patient and further recommendation to follow. 08/05 interval history: patient on Solu-Medrol, gabapentin and Lidoderm patches patient states the pain is better today, seen by nurse reviewer on diltiazem drip and metoprolol rate is trending down continue to monitor patient is on Lovenox will switch over to Eliquis for anticoagulation, will have a PT OT evaluate the patient and further recommendation to follow, patient remains clinically stable, and has no new complaints. (2) Hypoxia: Code(s): R09.02 - Hypoxemia Status: Acute Assessment and Plan: Secondary to above Supplemental oxygen by nasal cannula as needed Try and keep oxygen saturation at 92% (3) Atrial fibrillation with RVR: Code(s): I48.91 - Unspecified atrial fibrillation Status: Acute Assessment and Plan: Currently on diltiazem drip Cardiology has been consulted (4) ALEXANDER (acute kidney injury): Code(s): N17.9 - Acute kidney failure, unspecified Status: Acute Assessment and Plan: Likely to be cardiorenal syndrome Continue to monitor (5) Coronary artery disease: Code(s): I25.10 - Atherosclerotic heart disease of [place] coronary artery without angina pectoris Status: Acute Assessment and Plan: Resume home meds Continue to monitor (6) Diabetes mellitus type 2, controlled: Code(s): E11.9 - Type 2 diabetes mellitus without complications Status: Acute Assessment and Plan: Diet controlled Subjective Date/time seen: 08/05/21 14:40 08/03 interval history: patient is elderly with Alzheimer dementia, unable to provide detailed review of symptom presented with a with shortness of breath with pulmonary edema currently patient is on Lasix 10 mg p.o. q.day seen by cardiology and started the patient on Lasix 20 mg IV b.i.d., patient with atrial fibrillation with RVR was started on diltiazem drip read is trending down, patient is off the drip and on metoprolol 25 mg q.6 hours, [id number] score 7. On aspirin 81 mg daily currently. patient will benefit from anticoagulation to prevent stroke however patient with hematuria will consult Urology for further recommendation, will continue to monitor will have PT OT evaluate the patient. 08/04 interval history: patient is elderly with dementia complains of back pain started the patient on Solu-Medrol, gabapentine and Lidoderm patch, patient feels swallow study, will placed NG tube, patient rate is controlled
[2021-08-04] MEDS: ENOXAPARIN 100 MG/ML SYRINGE SUB-Q (18:30)
[2021-08-04] MEDS: methylPREDNISolone SOD SUCC 125 MG VIAL 60 MG IV PUSH (20:24)
[2021-08-04 23:50] LABS: Glucose Point of Care 243 mg/dl (65-105)
[2021-08-05] VITALS (25 sets, daily range): BP systolic 113–127; BP diastolic 55–73; PULSE 82–120; RESP 16–22; TEMP 35.8–36.3; O2SAT 92–97
[2021-08-05] MEDS: IPRATROPIUM BR 0.02% INH SOLN 0.5 MG/2.5 ML VIAL INHALATION ×3 (01:29→20:22)
[2021-08-05] MEDS: ALBUTEROL SULFATE NEB 2.5 MG/0.5 ML INH INHALATION ×3 (01:29→20:22)
[2021-08-05] MEDS: methylPREDNISolone SOD SUCC 125 MG VIAL 60 MG IV PUSH ×3 (05:10→21:40)
[2021-08-05] MEDS: ENOXAPARIN 100 MG/ML SYRINGE SUB-Q ×2 (05:10→18:18)
[2021-08-05] MEDS: METOPROLOL TARTRATE 25 MG TABLET FEED TUBE ×3 (06:47→18:14)
[2021-08-05] MEDS: FERROUS SULFATE LIQUID 325 MG/7.4 ML ELIXIR FEED TUBE (08:29)
[2021-08-05] MEDS: DESVENLAFAXINE SUCCINATE 50 MG TAB.ER.24H 100 MG PO (08:29)
[2021-08-05] MEDS: FOLIC ACID 1 MG TABLET FEED TUBE (08:30)
[2021-08-05] MEDS: ARIPiprazole 2.5 MG TABLET FEED TUBE (08:31)
[2021-08-05] MEDS: SIMVASTATIN 20 MG TABLET 40 MG FEED TUBE (08:31)
[2021-08-05] MEDS: lisinopriL 5 MG TABLET FEED TUBE (08:32)
[2021-08-05] MEDS: FINASTERIDE 5 MG TABLET FEED TUBE (08:32)
[2021-08-05] MEDS: DORZOLAMIDE/TIMOLOL OPHTH SOL 10 ML BOTTLE 1 DROP EACH EYE (08:35)
[2021-08-05] MEDS: FLUTICASONE PROPIONATE 0.05% NA SPR 16 GM BTL (*BKC) 2 SPRAY NASAL (08:35)
[2021-08-05] MEDS: FUROSEMIDE INJ 40 MG/4 ML VIAL 20 MG IV PUSH ×2 (08:35→18:13)
[2021-08-05] MEDS: BRIMONIDINE TARTRATE 0.2% OP SOLN 5 ML BTL 1 DROP EACH EYE ×2 (08:35→20:36)
[2021-08-05] MEDS: ZINC OXIDE 20% OINT 30 GM TUBE 1 APPLIC TOPICAL (08:36)
[2021-08-05] MEDS: LIDOCAINE 5% PATCH 3 PATCH TRANSDERM (08:36)
[2021-08-05] MEDS: ASPIRIN 81 MG CHEWABLE TABLET FEED TUBE (08:39)
--- NOTE | 2021-08-05 09:18 | PM.PNCARD ---
Progress Note: A&P Assessment and Plan (1) CHF exacerbation: Qualifiers: Heart failure type: unspecified Qualified Code(s): I50.9 - Heart failure, unspecified Code(s): I50.9 - Heart failure, unspecified Status: Acute Assessment and Plan: Given elevated NT proBNP and CXR with mild pulm edema, he is on Lasix 20 mg IV BID. Echo shows EF 55-60%, distolic dysfunction (E/e' 11), severe LAE, RVSP 41 mmHg. (2) Atrial fibrillation with RVR: Code(s): I48.91 - Unspecified atrial fibrillation Status: Acute Assessment and Plan: [id number] score 7. He is on Lovenox. Would benefit from NOAC half-way such as Eliquis 2.5 mg BID instead of Lovenox. Rate control with Diltiazem drip and Metoprolol. Anticipate march d/c diltiazem drip and change to Diltiazem CD 240 mg daily and Metoprolol if he is getting them via feed tube. (3) CAD (coronary artery disease), autologous vein bypass graft: Code(s): I25.810 - Atherosclerosis of coronary artery bypass graft(s) without angina pectoris Status: Acute Assessment and Plan: Stable. Need to obtain more history about CABG. (4) Hypertension: Code(s): I10 - Essential (primary) hypertension Status: Acute Assessment and Plan: Stable. (5) Hyperlipidemia: Code(s): E78.5 - Hyperlipidemia, unspecified Status: Acute Assessment and Plan: On Simvastatin. (6) Chronic indwelling Gomez catheter: Code(s): Z97.8 - Presence of other specified devices Status: Acute Subjective Date/time seen: 08/05/21 09:18 Patient is confused. No chest pain or sob. He failed his swallow test. Exam Const: General: cooperative, comfortable, no acute distress, alert and confusion Resp: Auscultation: clear to auscultation bilaterally, no crackles, no rales, no rhonchi and no wheezes Cardio: Jugular venous distension: no JVD Rate: tachycardic Rhythm: abnormal rhythm Heart sounds: no murmurs Peripheral pulses: dorsalis pedis present GI: GI Palp: No abdominal tenderness and Yes Soft to palpation Neuro: General: oriented to person, No oriented to place and No oriented to time Extrem: Right lower extremity: no edema Left lower extremity: no edema Objective Data Vital Signs Vital Signs: Vital Signs - 24 hr 08/04/21 09:58 08/04/21 10:00 08/04/21 10:13 Temperature Pulse Rate 104 H 101 H 99 Respiratory Rate 20 20 Blood Pressure Pulse Oximetry 95 08/04/21 12:00 08/04/21 13:13 08/04/21 14:00 Temperature 97.8 F Pulse Rate 112 H 112 H 105 H Respiratory Rate 20 Blood Pressure 104/57 L Pulse Oximetry 99 08/04/21 14:56 08/04/21 15:06 08/04/21 16:00 Temperature 97.0 F L Pulse Rate 102 H 97 91 Respiratory Rate 20 20 20 Blood Pressure 118/59 L Pulse Oximetry 95 08/04/21 20:00 08/04/21 21:20 08/04/21 21:30 Temperature 97.9 F Pulse Rate 97 106 H 98 Respiratory Rate 18 18 20 Blood Pressure 120/66 Pulse Oximetry 96 08/04/21 22:00 08/04/21 23:51 08/05/21 00:00 Temperature 97.9 F Pulse Rate 111 H 102 H 111 H Respiratory Rate 16 Blood Pressure 123/68 Pulse Oximetry 95 08/05/21 01:31 08/05/21 01:49 08/05/21 02:00 Temperature Pulse Rate 116 H 113 H 99 Respiratory Rate 22 H 22 H Blood Pressure Pulse Oximetry 08/05/21 04:00 08/05/21 06:00 08/05/21 06:47 Temperature 97.1 F L Pulse Rate 108 H 120 H 111 H Respiratory Rate 16 Blood Pressure 117/65 Pulse Oximetry 97 08/05/21 08:58 Temperature 96.5 F L Pulse Rate 101 H Respiratory Rate 16 Blood Pressure 113/58 L Pulse Oximetry 96 Intake/Output Intake/Output: Intake & Output 08/02/21 08/03/21 08/04/21 08/05/21 23:59 23:59 23:59 23:59 Intake Total 50 250 450 200 Output Total 1750 1022 475 Balance 50 -1500 -575 -275 Meds/Results Medications: Active Medications Generic Name Dose Route Start Last Admin Trade Name Freq PRN Reason Stop Dose Admin Albutero
[2021-08-05] MEDS: BUDESONIDE RESPULE NEB 0.5 MG/2 ML AMP INHALATION (10:21)
[2021-08-05] MEDS: MIRTAZAPINE 15 MG TABLET FEED TUBE (20:35)
[2021-08-05 21:46] LABS: Glucose Point of Care 273 mg/dl (65-105)
[2021-08-06] VITALS (17 sets, daily range): BP systolic 112–138; BP diastolic 52–80; PULSE 82–102; RESP 18–20; TEMP 36.1–36.3; O2SAT 97
[2021-08-06] MEDS: METOPROLOL TARTRATE 25 MG TABLET FEED TUBE ×2 (00:37→05:25)
[2021-08-06] MEDS: ALBUTEROL SULFATE NEB 2.5 MG/0.5 ML INH INHALATION ×3 (02:38→14:30)
[2021-08-06] MEDS: IPRATROPIUM BR 0.02% INH SOLN 0.5 MG/2.5 ML VIAL INHALATION ×3 (02:38→14:30)
[2021-08-06] MEDS: methylPREDNISolone SOD SUCC 125 MG VIAL 60 MG IV PUSH (05:24)
[2021-08-06] MEDS: ENOXAPARIN 100 MG/ML SYRINGE SUB-Q (05:25)
[2021-08-06] MEDS: FLUTICASONE PROPIONATE 0.05% NA SPR 16 GM BTL (*BKC) 2 SPRAY NASAL (08:21)
[2021-08-06] MEDS: LIDOCAINE 5% PATCH 3 PATCH TRANSDERM (08:21)
[2021-08-06] MEDS: FUROSEMIDE INJ 40 MG/4 ML VIAL 20 MG IV PUSH (08:21)
[2021-08-06] MEDS: SIMVASTATIN 20 MG TABLET 40 MG FEED TUBE (08:22)
[2021-08-06] MEDS: DORZOLAMIDE/TIMOLOL OPHTH SOL 10 ML BOTTLE 1 DROP EACH EYE (08:22)
[2021-08-06] MEDS: BRIMONIDINE TARTRATE 0.2% OP SOLN 5 ML BTL 1 DROP EACH EYE (08:22)
[2021-08-06] MEDS: FERROUS SULFATE LIQUID 325 MG/7.4 ML ELIXIR FEED TUBE (08:22)
[2021-08-06] MEDS: ARIPiprazole 2.5 MG TABLET FEED TUBE (08:23)
[2021-08-06] MEDS: ZINC OXIDE 20% OINT 30 GM TUBE 1 APPLIC TOPICAL (08:23)
[2021-08-06] MEDS: FOLIC ACID 1 MG TABLET FEED TUBE (08:24)
[2021-08-06] MEDS: FINASTERIDE 5 MG TABLET FEED TUBE (08:30)
[2021-08-06] MEDS: lisinopriL 5 MG TABLET FEED TUBE (08:30)
[2021-08-06] MEDS: ASPIRIN 81 MG CHEWABLE TABLET FEED TUBE (08:32)
[2021-08-06] MEDS: BUDESONIDE RESPULE NEB 0.5 MG/2 ML AMP INHALATION (08:37)
[2021-08-06 08:39] LABS: Glucose Point of Care 276 mg/dl (65-105)
--- NOTE | 2021-08-06 09:37 | PM.PNCARD ---
Progress Note: A&P Assessment and Plan (1) CHF exacerbation: Qualifiers: Heart failure type: unspecified Qualified Code(s): I50.9 - Heart failure, unspecified Code(s): I50.9 - Heart failure, unspecified Status: Acute Assessment and Plan: Given elevated NT proBNP and CXR with mild pulm edema, he is on Lasix 20 mg IV BID. Echo shows EF 55-60%, distolic dysfunction (E/e' 11), severe LAE, RVSP 41 mmHg. (2) Atrial fibrillation with RVR: Code(s): I48.91 - Unspecified atrial fibrillation Status: Acute Assessment and Plan: [id number] score 7. He is on Lovenox. Would benefit from NOAC halfway such as Eliquis 2.5 mg BID instead of Lovenox. Rate control with Diltiazem drip and Metoprolol. D/C diltiazem drip and change to Diltiazem 60 mg every 12 hours by TF and Metoprolol Tartate 50 mg every 12 hours by TF. (3) CAD (coronary artery disease), autologous vein bypass graft: Code(s): I25.810 - Atherosclerosis of coronary artery bypass graft(s) without angina pectoris Status: Acute Assessment and Plan: Stable. Need to obtain more history about CABG. (4) Hypertension: Code(s): I10 - Essential (primary) hypertension Status: Acute Assessment and Plan: Stable. (5) Hyperlipidemia: Code(s): E78.5 - Hyperlipidemia, unspecified Status: Acute Assessment and Plan: Change Simvastatin to Pravastatin due to conflict with Diltiazem. (6) Chronic indwelling Gomez catheter: Code(s): Z97.8 - Presence of other specified devices Status: Acute Subjective Date/time seen: 08/06/21 09:37 Denies chest pain or sob. Exam Const: General: cooperative, comfortable, no acute distress, alert and confusion Resp: Auscultation: clear to auscultation bilaterally, no crackles, no rales, no rhonchi and no wheezes Cardio: Jugular venous distension: no JVD Rate: regular rate Rhythm: abnormal rhythm Heart sounds: no murmurs Peripheral pulses: dorsalis pedis present GI: GI Palp: No abdominal tenderness and Yes Soft to palpation Neuro: General: oriented to person, No oriented to place and No oriented to time Extrem: Right lower extremity: no edema Left lower extremity: no edema Objective Data Vital Signs Vital Signs: Vital Signs - 24 hr 08/05/21 10:00 08/05/21 10:22 08/05/21 10:37 Temperature Pulse Rate 98 94 87 Respiratory Rate 20 20 Blood Pressure Pulse Oximetry 92 92 08/05/21 12:00 08/05/21 13:14 08/05/21 14:00 Temperature 97.1 F L Pulse Rate 103 H 102 H 90 Respiratory Rate 20 Blood Pressure 127/73 Pulse Oximetry 96 08/05/21 16:00 08/05/21 16:13 08/05/21 16:24 Temperature 96.7 F L Pulse Rate 104 H 91 95 Respiratory Rate 22 H Blood Pressure 115/63 Pulse Oximetry 97 08/05/21 18:00 08/05/21 18:14 08/05/21 20:00 Temperature 97.2 F L Pulse Rate 90 85 94 Respiratory Rate 20 Blood Pressure 124/59 L Pulse Oximetry 94 08/05/21 20:20 08/05/21 20:30 08/05/21 22:00 Temperature Pulse Rate 90 94 91 Respiratory Rate 20 20 Blood Pressure Pulse Oximetry 94 08/05/21 23:54 08/06/21 00:00 08/06/21 00:37 Temperature 97.4 F L Pulse Rate 82 84 91 Respiratory Rate 18 Blood Pressure 118/55 L Pulse Oximetry 94 08/06/21 02:00 08/06/21 02:40 08/06/21 02:50 Temperature Pulse Rate 102 H 88 93 Respiratory Rate 20 20 Blood Pressure Pulse Oximetry 08/06/21 04:00 08/06/21 05:25 08/06/21 06:00 Temperature 97.4 F L Pulse Rate 88 93 88 Respiratory Rate 18 Blood Pressure 131/77 Pulse Oximetry 97 08/06/21 08:38 08/06/21 09:31 Temperature 96.9 F L Pulse Rate 87 99 Respiratory Rate 20 20 Blood Pressure 138/80 Pulse Oximetry 97 Intake/Output Intake/Output: Intake & Output 08/03/21 08/04/21 08/05/21 08/06/21 23:59 23:59 23:59 23:59 Intake Total 250 450 450 100 Output Total 1750 1025 1125 [facility] -1500 -575 -675 100 Meds
[2021-08-06] MEDS: dilTIAZem HCL 60 MG TABLET FEED TUBE (11:00)
[2021-08-06] MEDS: PRAVASTATIN SODIUM 20 MG TABLET 40 MG PO (11:00)
[2021-08-06 13:20] LABS: Glucose Point of Care 303 mg/dl (65-105)
--- NOTE | 2021-08-06 15:29 | PM.IMPN ---
Progress Note: A&P Assessment and Plan (1) CHF exacerbation: Qualifiers: Heart failure type: unspecified Qualified Code(s): I50.9 - Heart failure, unspecified Code(s): I50.9 - Heart failure, unspecified Status: Acute Assessment and Plan: Likely secondary to uncontrolled heart rate Diurese as needed Repeat echocardiogram Last echocardiogram is being 6+ months 08/06/21 15:29 08/03 interval history: patient is elderly with Alzheimer dementia, unable to provide detailed review of symptom presented with a with shortness of breath with pulmonary edema currently patient is on Lasix 10 mg p.o. q.day seen by cardiology and started the patient on Lasix 20 mg IV b.i.d., patient with atrial fibrillation with RVR was started on diltiazem drip read is trending down, patient is off the drip and on metoprolol 25 mg q.6 hours, [id number] score 7. On aspirin 81 mg daily currently. patient will benefit from anticoagulation to prevent stroke however patient with hematuria will consult Urology for further recommendation, will continue to monitor will have PT OT evaluate the patient. 08/04 interval history: patient is elderly with dementia complains of back pain started the patient on Solu-Medrol, gabapentine and Lidoderm patch, patient feels swallow study, will placed NG tube, patient rate is controlled with diltiazem drip unable to switch over as patient is NPO, seen by reimbursement consultant, will continue to monitor will have PT OT evaluate the patient and further recommendation to follow. 08/05 interval history: patient on Solu-Medrol, gabapentin and Lidoderm patches patient states the pain is better today, seen by reimbursement consultant on diltiazem drip and metoprolol rate is trending down continue to monitor patient is on Lovenox will switch over to Eliquis for anticoagulation, will have a PT OT evaluate the patient and further recommendation to follow, patient remains clinically stable, and has no new complaints. 08/06 interval history: patient remained confused and pulling out his NG tube unable to get the medications and feeding, unable to provide any review of symptom, I spoke with the patient's son and he has agreed to place the patient under hospice care will continue to monitor, will taper methylprednisone 60 mg q.8 to Q daily, further recommendation to follow. (2) Hypoxia: Code(s): R09.02 - Hypoxemia Status: Acute Assessment and Plan: Secondary to above Supplemental oxygen by nasal cannula as needed Try and keep oxygen saturation at 92% (3) Atrial fibrillation with RVR: Code(s): I48.91 - Unspecified atrial fibrillation Status: Acute Assessment and Plan: Currently on diltiazem drip Cardiology has been consulted (4) ALEXANDER (acute kidney injury): Code(s): N17.9 - Acute kidney failure, unspecified Status: Acute Assessment and Plan: Likely to be cardiorenal syndrome Continue to monitor (5) Coronary artery disease: Code(s): I25.10 - Atherosclerotic heart disease of [place] coronary artery without angina pectoris Status: Acute Assessment and Plan: Resume home meds Continue to monitor (6) Diabetes mellitus type 2, controlled: Code(s): E11.9 - Type 2 diabetes mellitus without complications Status: Acute Assessment and Plan: Diet controlled Subjective Date/time seen: 08/06/21 15:29 08/03 interval history: patient is elderly with Alzheimer dementia, unable to provide detailed review of symptom presented with a with shortness of breath with pulmonary edema currently patient is on Lasix 10 mg p.o. q.day seen by cardiology and started the patient on Lasix 20 mg IV b.i.d., patient with atrial fibrillation with RVR was started on diltiazem drip read is trending down, patient is off the drip and on metoprolol 25 mg q.6 hours, [id number] score 7. On aspirin 81 mg daily currently. patient will benefit from anticoagulation to prevent stroke jared
[2021-08-06] MEDS: LORazepam INJ (*CRX) 2 MG/ML VIAL 1 MG IV PUSH (16:25)
--- NOTE | 2021-08-07 07:22 | PM.DS ---
DS: Admitting Diagnosis Discharge Date 08/06/21 Admitting Diagnosis Chief Complaint: Abnormal pulse DS: Discharge Diagnosis Discharge Diagnosis (1) CHF exacerbation: Qualifiers: Heart failure type: unspecified Qualified Code(s): I50.9 - Heart failure, unspecified Code(s): I50.9 - Heart failure, unspecified Status: Acute Assessment and Plan: Likely secondary to uncontrolled heart rate Diurese as needed Repeat echocardiogram Last echocardiogram is being 6+ months 08/06/21 15:29 08/03 interval history: patient is elderly with Alzheimer dementia, unable to provide detailed review of symptom presented with a with shortness of breath with pulmonary edema currently patient is on Lasix 10 mg p.o. q.day seen by cardiology and started the patient on Lasix 20 mg IV b.i.d., patient with atrial fibrillation with RVR was started on diltiazem drip read is trending down, patient is off the drip and on metoprolol 25 mg q.6 hours, [id number] score 7. On aspirin 81 mg daily currently. patient will benefit from anticoagulation to prevent stroke however patient with hematuria will consult Urology for further recommendation, will continue to monitor will have PT OT evaluate the patient. 08/04 interval history: patient is elderly with dementia complains of back pain started the patient on Solu-Medrol, gabapentine and Lidoderm patch, patient feels swallow study, will placed NG tube, patient rate is controlled with diltiazem drip unable to switch over as patient is NPO, seen by vice president global digital marketing, will continue to monitor will have PT OT evaluate the patient and further recommendation to follow. 08/05 interval history: patient on Solu-Medrol, gabapentin and Lidoderm patches patient states the pain is better today, seen by vice president global digital marketing on diltiazem drip and metoprolol rate is trending down continue to monitor patient is on Lovenox will switch over to Eliquis for anticoagulation, will have a PT OT evaluate the patient and further recommendation to follow, patient remains clinically stable, and has no new complaints. 08/06 interval history: patient remained confused and pulling out his NG tube unable to get the medications and feeding, unable to provide any review of symptom, I spoke with the patient's son and he has agreed to place the patient under hospice care will continue to monitor, will taper methylprednisone 60 mg q.8 to Q daily, further recommendation to follow. (2) Hypoxia: Code(s): R09.02 - Hypoxemia Status: Acute Assessment and Plan: Secondary to above Supplemental oxygen by nasal cannula as needed Try and keep oxygen saturation at 92% (3) Atrial fibrillation with RVR: Code(s): I48.91 - Unspecified atrial fibrillation Status: Acute Assessment and Plan: Currently on diltiazem drip Cardiology has been consulted (4) ALEXANDER (acute kidney injury): Code(s): N17.9 - Acute kidney failure, unspecified Status: Acute Assessment and Plan: Likely to be cardiorenal syndrome Continue to monitor (5) Coronary artery disease: Code(s): I25.10 - Atherosclerotic heart disease of [place] coronary artery without angina pectoris Status: Acute Assessment and Plan: Resume home meds Continue to monitor (6) Diabetes mellitus type 2, controlled: Code(s): E11.9 - Type 2 diabetes mellitus without complications Status: Acute Assessment and Plan: Diet controlled DS: Summary Hospital Course Reason for hospitalization: Chief Complaint: Abnormal pulse Narrative: This is an 85-year-old male with past medical history significant for Alzheimer's dementia, coronary artery disease status post coronary artery bypass graft, chronic Gomez catheter, dyslipidemia, hypertension, COPD, benign prostatic hyperplasia, glaucoma. Patient was just recently discharged to senior care/rehabilitation however today staff was concerned after patient had a fast pulse as sue
--- NOTE | 2021-08-27 18:57 | PM.IMPN ---
Progress Note: A&P Assessment and Plan (1) CHF exacerbation: Qualifiers: Heart failure type: unspecified Qualified Code(s): I50.9 - Heart failure, unspecified Code(s): I50.9 - Heart failure, unspecified Status: Acute Assessment and Plan: Likely secondary to uncontrolled heart rate Diurese as needed Repeat echocardiogram Last echocardiogram is being 6+ months 08/06/21 15:29 08/03 interval history: patient is elderly with Alzheimer dementia, unable to provide detailed review of symptom presented with a with shortness of breath with pulmonary edema currently patient is on Lasix 10 mg p.o. q.day seen by cardiology and started the patient on Lasix 20 mg IV b.i.d., patient with atrial fibrillation with RVR was started on diltiazem drip read is trending down, patient is off the drip and on metoprolol 25 mg q.6 hours, [id number] score 7. On aspirin 81 mg daily currently. patient will benefit from anticoagulation to prevent stroke however patient with hematuria will consult Urology for further recommendation, will continue to monitor will have PT OT evaluate the patient. 08/04 interval history: patient is elderly with dementia complains of back pain started the patient on Solu-Medrol, gabapentine and Lidoderm patch, patient feels swallow study, will placed NG tube, patient rate is controlled with diltiazem drip unable to switch over as patient is NPO, seen by press tender long goods, will continue to monitor will have PT OT evaluate the patient and further recommendation to follow. 08/05 interval history: patient on Solu-Medrol, gabapentin and Lidoderm patches patient states the pain is better today, seen by press tender long goods on diltiazem drip and metoprolol rate is trending down continue to monitor patient is on Lovenox will switch over to Eliquis for anticoagulation, will have a PT OT evaluate the patient and further recommendation to follow, patient remains clinically stable, and has no new complaints. Subjective Date/time seen: 08/05/202108/04 interval history: patient is elderly with dementia complains of back pain started the patient on Solu-Medrol, gabapentine and Lidoderm patch, patient feels swallow study, will placed NG tube, patient rate is controlled with diltiazem drip unable to switch over as patient is NPO, seen by press tender long goods, will continue to monitor will have PT OT evaluate the patient and further recommendation to follow. 08/05 interval history: patient on Solu-Medrol, gabapentin and Lidoderm patches patient states the pain is better today, seen by press tender long goods on diltiazem drip and metoprolol rate is trending down continue to monitor patient is on Lovenox will switch over to Eliquis for anticoagulation, will have a PT OT evaluate the patient and further recommendation to follow, patient remains clinically stable, and has no new complaints. Review of Systems Review of Systems: ROS unobtainable: Yes unobtainable due to medical condition (Alzheimer's dementia) Exam Narrative: Patient is comfortable, NAD HEENT: eyes are clear and none icteric LUNGS: bilateral fair air entry with rales and rhonchi HEART: irregularly irregular ABD: BS+, Soft and nontender Lower extremities: no edema SKIN: nonjaundiced Neuro: somnolent dementia. Objective Data Meds/Results Radiology Results: ITS Impressions Chest X-Ray 08/03/21 08:05 IMPRESSION: 1. Increasing opacities in the bilateral mid and lower lung zones which could represent atelectasis, pneumonia, pulmonary edema or some combination thereof. 2. Interval elevation of the left hemidiaphragm 3. Cardiomegaly. Modified Barium Swallow 08/04/21 09:25 IMPRESSION: Silent aspiration demonstrated; Please refer to speech pathologist findings and specific feeding recommendations. Abdomen X-Ray 08/05/21 15:50 IMPRESSION: 1. Tip of the nasogastric tube in the stomach with the proximal side port just below the gastroesophageal junction. Conside
== END 2021-08-06 17:23 | disposition hospice, inpatient (51) | DRG 292 ==
LOC: ANHED 19:34 → ANHIMU 19:40
PROVIDERS: Emergency Medicine; Admitting Provider Internal Medicine; Emergency Provider Emergency Medicine; PCP Family Medicine; Visit Provider Family Medicine
DX: I11.0 Hypertensive heart disease with heart failure (principal); N17.9 Acute kidney failure, unspecified; I50.9 Heart failure, unspecified; R09.02 Hypoxemia; G30.9 Alzheimer's disease, unspecified; F02.80 Dementia in other diseases classified elsewhere, unspecified severity, without behavioral disturbance, psychotic disturbance, mood disturbance, and anxiety; I48.91 Unspecified atrial fibrillation; I25.10 Atherosclerotic heart disease of native coronary artery without angina pectoris; E11.9 Type 2 diabetes mellitus without complications; J44.9 Chronic obstructive pulmonary disease, unspecified; N40.0 Benign prostatic hyperplasia without lower urinary tract symptoms; E78.5 Hyperlipidemia, unspecified; H40.9 Unspecified glaucoma; Z95.1 Presence of aortocoronary bypass graft; Z87.891 Personal history of nicotine dependence; Z79.82 Long term (current) use of aspirin
CPT/HCPCS: 36415; 71045; 74018; 80048; 81001; 82948; 83605; 83735; 83880; 84484; 85025; 85027; 85055; 85610; 85730; 87040; 87086; 92526; 92610; 92611; 93005; 93306; 94640; 96365; 96367; 96375; 96376; 99285; A9270; G0378; J0131; J0696; J1650; J1940; J2060; J2930

== ENCOUNTER 2021-08-06 17:24 | HOS | payer OTHER, MEDICARE, SELFPAY ==
[2021-08-06 17:29] VITALS: BP 133/69; PULSE 56; RESP 14; TEMP 36.2; O2SAT 85
[2021-08-06] MEDS: MORPHINE SULFATE (*CRX) 2 MG/ML INJ IV PUSH ×2 (18:48→23:19)
[2021-08-06] MEDS: LORazepam INJ (*CRX) 2 MG/ML VIAL 1 MG IV PUSH (20:55)
[2021-08-07] MEDS: LORazepam INJ (*CRX) 2 MG/ML VIAL 1 MG IV PUSH ×4 (04:12→20:12)
[2021-08-07] MEDS: MORPHINE SULFATE (*CRX) 2 MG/ML INJ IV PUSH ×4 (08:30→23:33)
--- NOTE | 2021-08-07 15:29 | PM.IMHP ---
H&P: HPI History of Present Illness Date/Time: 08/07/21 15:29 patient 85-year-old male with atrial fibrillation congestive heart failure and chronic pain, had difficulty swallowing and failed modified swallow study and was placed on NG, however patient pulled out NG 3-4 times, discussed with family for the PEG, after long discussion family has decided to place the patient under hospice care and patient is being monitor by hospice team will start patient on comfort measures with morphine, Ativan, scopolamine, patient's family will feed the patient as pleased. Chief Complaint: hospice care patient Review of Systems Review of Systems: ROS unobtainable: Yes unobtainable due to medical condition PMFSH Family History Family History Father Cancer Grandparent Cancer Mother Cancer Sibling Cancer Social History Social History Social History: Smoking packs per day: 1 Smoking cigarettes per day: 20.0 Years smoked: 10 Smoking pack-years: 10.00 Smoking status: Former smoker Tobacco type: cigarettes Second hand tobacco smoke exposure: Yes Smoking end date: 11/04/1959 Alcohol intake: current Drinks per week: 1 Substance use: never Substance use type: does not use Gender identity (if verbalized by the patient): Male Sexual Orientation (if Verbalized by the Patient): Straight or Heterosexual Spiritual care concerns: No Meds Home Medications and Allergies Home Medications Medication Instructions Recorded Confirmed Type aripiprazole 5 mg tablet 2.5 mg PO DAILY #90 tablet 06/29/21 08/06/21 Rx aspirin 81 mg tablet,delayed 81 mg PO DAILY 06/29/21 08/06/21 History release brimonidine 0.2 % eye drops 1 drp EACH EYE Q12H 06/29/21 08/06/21 History carvedilol 3.125 mg tablet 3.125 mg PO Q12H 06/29/21 08/06/21 History desvenlafaxine 100 mg 100 mg PO DAILY 06/29/21 08/06/21 History tablet,extended release 24 hr dorzolamide 22.3 mg-timolol 6.8 1 drp EACH EYE DAILY 06/29/21 08/06/21 History mg/mL eye drops finasteride 5 mg tablet 5 mg PO DAILY 06/29/21 08/06/21 History fluticasone propionate 50 2 spray INTRANASAL DAILY 06/29/21 08/06/21 History mcg/actuation nasal spray,suspension folic acid 1 mg tablet 1 mg PO DAILY 06/29/21 08/06/21 History furosemide 20 mg tablet 10 mg PO QAM 06/29/21 08/06/21 History lisinopril 5 mg tablet 5 mg PO DAILY 06/29/21 08/06/21 History mirtazapine 15 mg tablet 15 mg PO QHS #90 tablet 06/29/21 08/06/21 Rx simvastatin 40 mg tablet 40 mg PO DAILY 06/29/21 08/06/21 History tamsulosin 0.4 mg capsule 0.4 mg PO DAILY 06/29/21 08/06/21 History polysaccharide iron complex 150 mg PO BID 07/30/21 08/06/21 History [iFerex 150] zinc oxide 1 applic TOPICAL DAILY 07/30/21 08/06/21 History amoxicillin-pot clavulanate 1 tablet PO Q12H #14 tablet 07/31/21 08/06/21 Rx ferrous sulfate 325 mg PO DAILY 07/31/21 08/06/21 History budesonide [Pulmicort] 0.5 mg INHALATION DAILY 08/03/21 08/06/21 History ipratropium-albuterol 3 ml INHALATION QID 08/03/21 08/06/21 History Allergies Allergy/AdvReac Type Severity Reaction Status Date / Time watermelon Allergy Severe SOB Verified 08/02/21 17:31 Exam Narrative: elderly frail Patient is comfortable, NAD HEENT: eyes are clear and none icteric LUNGS: normal respiratory effort ABD: not distended Lower extremities: no edema SKIN: nonjaundiced Neuro: somnolent. Assessment and Plan Assessment and plan (1) Hospice care patient: Code(s): Z51.5 - Encounter for palliative care Status: Acute Additional Plan 08/07/21 15:29 patient 85-year-old male with atrial fibrillation congestive heart failure and chronic pain, had difficulty swallowing and failed modified swallow study and was placed on NG, however patient pulled out NG 3-4 times, discussed with family for the PEG, after long discussion family h
[2021-08-07 20:00] VITALS: PULSE 130; RESP 16; O2SAT 78
[2021-08-07 20:48] VITALS: BP 115/68; PULSE 130; RESP 16; TEMP 36.4; O2SAT 78
[2021-08-08] MEDS: MORPHINE SULFATE (*CRX) 2 MG/ML INJ IV PUSH ×2 (06:02→10:32)
[2021-08-08] MEDS: LORazepam INJ (*CRX) 2 MG/ML VIAL 1 MG IV PUSH ×3 (08:43→15:17)
[2021-08-08 09:03] LABS: Glucose Point of Care 194 mg/dl (65-105)
[2021-08-08 09:14] VITALS: BP 117/88; PULSE 64; RESP 28; TEMP 35.8; O2SAT 94
--- NOTE | 2021-08-08 12:50 | P.PNIM_ITS ---
Progress Note: A&P Assessment and Plan (1) Hospice care patient: Code(s): Z51.5 - Encounter for palliative care Status: Acute Assessment and Plan: Pt has history of Alzheimers, atrial fibrillation congestive heart failure and chronic pain, difficulty swallowing and failed modified swallow study not tolerating NG tube, Family have decided on hospice care. Pt HR is high, pt looks restless. D/w hospice nurse adjusted anxiety and pain medications. Pt is DNR under hospice care. Declining slowly. Additional Plan Pts family have decided to place the patient under hospice care and patient is being monitor by hospice team, Pt has morphine, Ativan, scopolamine ordered, patient's family will feed the patient as pleased. Subjective Date/time seen: 08/08/21 12:50 Interval history: Pt has a history of Alzheimers, atrial fibrillation congestive heart failure and chronic pain, difficulty swallowing and failed modified swallow study not tolerating NG tube, Family have decided on hospice care. Pt HR is high, pt looks restless. D/w hospice nurse adjusted anxiety and pain medications. Review of Systems Review of Systems: ROS unobtainable: Yes unobtainable due to medical condition Exam Narrative: Patient elderly restless in bed HEENT: eyes are clear and none icteric LUNGS: normal respiratory effort ABDO: not distended Lower extremities: no edema SKIN: nonjaundiced Neuro: somnolent. Objective Data Vital Signs Vital Signs: Vital Signs - 24 hr 08/07/21 20:00 08/07/21 20:48 08/08/21 09:14 Temperature 36.4 C 35.8 C L Pulse Rate 130 H 130 H 64 Respiratory Rate 16 16 28 H Blood Pressure 115/68 117/88 Pulse Oximetry 78 L 78 L 94 Intake/Output Intake/Output: Intake & Output 08/05/21 08/06/21 08/07/21 08/08/21 23:59 23:59 23:59 23:59 Output Total 525 1600 Balance -525 -1600 Meds/Results Medications: Active Medications Generic Name Dose Route Start Last Admin Trade Name Freq PRN Reason Stop Dose Admin Acetaminophen 650 mg 08/06/21 17:53 Acetaminophen 650 Mg Suppository RECTAL Q4H PRN Fever Albuterol 2.5 mg 08/06/21 17:53 Albuterol Sulfate Neb 2.5 Mg/0.5 Ml Inh INHALATION Q4HRT PRN Shortness Of Breath Atropine Sulfate 2 drop 08/06/21 17:52 Atropine Sulfate 1% Ophth Soln 5 Ml Bottle SUBLINGUAL Q4H PRN Secretions/GURGLING Bisacodyl 10 mg 08/06/21 17:54 Bisacodyl 10 Mg Suppository RECTAL QAM PRN Constipation Lorazepam 1 mg 08/08/21 12:32 Lorazepam Inj (*Crx) 2 Mg/Ml Vial IV PUSH Q3-4H PRN ANXIETY,RESTLESS,SOB,AGITATION Morphine Sulfate 3 mg 08/08/21 12:32 Morphine Sulfate (*Crx) 2 Mg/Ml Inj IV PUSH Q3H PRN PAIN OR SOB Phenol 1 spray 08/07/21 09:27 Phenol/Sod Pheno [place] (*[facility]) MUCOUS MEM PRN PRN Sore Throat Labs Labs: Laboratory Results - last 24 hr 08/08/21 08:23 POC Capillary Glucose 194 H
[2021-08-08] MEDS: MORPHINE SULFATE (*CRX) 2 MG/ML INJ 3 MG IV PUSH (13:35)
--- NOTE | 2021-08-08 13:52 | PC.NURSE ---
pt to transfer to 318-hospice room- report given to Lilliana RN- pt transferred via bed accompanied by staff and family
[2021-08-08 15:41] VITALS: PULSE 64; RESP 30; O2SAT 94
--- NOTE | 2021-08-08 18:05 | PCAUD ---
Pt at 1615 this shift. Charge nurse informed house supervisors and MD and services. Post mortem care provided.
--- NOTE | 2021-08-09 09:09 | PM.DDS ---
Discharge Summary Date and Time Date of : 08/08/21 Time of : 16:10 Provider Pronounced By: [place] Jovel RN; Lilliana Dean RN Probable Cause of Probable Cause of : Probably cardiorenal syndrome CHF ALEXANDER CAD DM Alzheimer disease Summary Hospital Course: Pt has history of Alzheimers, atrial fibrillation, congestive heart failure and chronic pain, difficulty swallowing and failed modified swallow study. Pt did not tolerated NG tube. Pts family have decided to place the patient under hospice care and patient is being monitor by hospice team. Pt was on iv morphine, Ativan, scopolamine ordered. Patient's family will feed the patient as pleased. D/w hospice nurse. Pt is DNR under hospice care. Pt declined and passed at @1619 at 08/08/2021. Additional Data Confirmation of as documented by pronouncing clinician: Pupillary Reflex, Palpable Pulses, Response to Stimuli, Heart Tones and Breath Sounds Name of Provider Notified: [facility] Time Provider Notified: 16:19 Provider Requests Autopsy: No Family Requests Autopsy: No [employer] Administrator Developer Notified: Yes Date [facility] Notified of : 08/08/21 Time [facility] Notified of : 16:21
== END 2021-08-08 16:10 | disposition expired | DRG 951 ==
LOC: ANH3MEDSUR 08-10 14:20 → ANHIMU 08-10 14:20
PROVIDERS: Admitting Provider Family Medicine; PCP Family Medicine; Visit Provider Family Medicine
DX: Z51.5 Encounter for palliative care (principal); I13.0 Hypertensive heart and chronic kidney disease with heart failure and stage 1 through stage 4 chronic kidney disease, or unspecified chronic kidney disease; N17.9 Acute kidney failure, unspecified; I48.91 Unspecified atrial fibrillation; Z66 Do not resuscitate; G89.29 Other chronic pain; R13.10 Dysphagia, unspecified; I50.9 Heart failure, unspecified; Z87.891 Personal history of nicotine dependence; G30.9 Alzheimer's disease, unspecified; F02.80 Dementia in other diseases classified elsewhere, unspecified severity, without behavioral disturbance, psychotic disturbance, mood disturbance, and anxiety; N18.9 Chronic kidney disease, unspecified; I25.10 Atherosclerotic heart disease of native coronary artery without angina pectoris
CPT/HCPCS: 82948; A9270; J2060; J2270